=== PATIENT | female | born 1985 | race African-American/Black ===

== ENCOUNTER 2020-11-13 14:56 | Emergency (ER) | payer MEDICARE, MEDICAID, SELFPAY ==
[2020-11-13 15:02] VITALS: BP 134/91; PULSE 136; RESP 18; TEMP 37.1; O2SAT 100; BMI 23.8
--- NOTE | 2020-11-13 16:08 | ED_ITS ---
HPI - Alcohol General Chief Complaint: Nausea/Vomiting/Diarrhea Stated Complaint: FEVER VOMITING Time Seen by Provider: 11/13/20 15:59 Source: patient Mode of arrival: ambulatory Limitations: no limitations History of Present Illness HPI narrative: Patient comes to emergency room complaining of alcohol withdrawal symptoms. Patient states she feels very shaky, sweaty. Patient states that she recently tried to stop drinking. Patient usually drinks 6 beers per day and for nebs. Patient drank 1 beer yesterday. Patient states that she is trying to do the right thing, she recently got her 2 kids back from the [facility], patient is now enrolled in school in a business administration program. Patient wants to stop drinking. Patient has no history of DTs. Patient also complaining that this morning she noticed that she has new ecchymoses on both sides of the tongue, patient did not have any seizures, did not bite her tongue, states it is from vomiting MD complaint: alcohol withdrawal Related Data Previous Rx's Medication Instructions Recorded ondansetron HCl [Zofran] 4 mg PO Q6H PRN #10 tab 11/13/20 ondansetron HCl [Zofran] 4 mg PO Q6H PRN #14 tab 11/13/20 ondansetron HCl [Zofran] 4 mg PO Q6H PRN #14 tab 11/13/20 Allergies Allergy/AdvReac Type Severity Reaction Status Date / Time aspirin [Aspirin] Allergy Unknown STOMACH Verified 11/13/20 15:01 ULCERS Review of Systems Review of Systems: Constitutional : No Weight loss, No Fever, No Chills, No Night Sweats, No Fatigue, generalized malaise ENT/Mouth : No Hearing loss, No Ear Pain, No Nasal Congestion, No Sinus Pain, No Hoarseness, No sore throat, No Rhinorrhea, No Swallowing Difficulty Eyes: No Eye Pain, No Swelling, No Redness, No Foreign Body, No Discharge, No Vision Changes Cardiovascular : No Chest Pain, No SOB, No Dyspnea on Exertion, No Orthopnea, No Edema, No Palpitations Respiratory : No Cough, No Sputum, No Wheezing, No Smoke Exposure, No Dyspnea Gastrointestinal : Complaining of nausea and vomiting, No Diarrhea, No Constipation, No abdominal Pain, No Hematochezia, No Melena Genitourinary : no irregular bleeding, No Dysuria, No Urinary Frequency, No Hematuria, No Urinary Incontinence, No Urgency, No Flank Pain, No Urinary Flow Changes, No Hesitancy Musculoskeletal : No joint pain, No Myalgias, No Joint Swelling Skin : No Skin Lesions, No rash Neuro : No Weakness, No Numbness, No Paresthesias, No Loss of Consciousness, No Dizziness, No Headache Psych : No Anxiety/Panic, No Depression, No SI/HI/AH/VH, No Social Issues, Heme/Lymph: No Bruising, No Bleeding,No Lymphadenopathy Endocrine : No Polyuria, No Polydipsia, No Temperature Intolerance [facility] Past Medical History Medical History ETOH abuse Scoliosis Social History Social History Smoking Status: Unknown if ever smoked Use of substances other than those prescribed or required for medical reasons: No Advance Directives: No Advance Directives Information Provided: Yes Physical Exam Vital Signs: Vital Signs: Last Vital Signs Temp 98.7 F 11/13/20 15:02 Pulse 110 H 11/13/20 19:19 Resp 15 11/13/20 19:19 BP 116/62 11/13/20 19:19 Pulse Ox 100 11/13/20 19:19 Body Mass Index 23.8 Appearance: Alert. Oriented X3. No acute distress. Patient is tremulous Eyes: Pupils equal, round and reactive to light. ENT: Pharynx normal. Tongue has ecchymosis on bilateral sides of the tongue, no bite rae Neck: Normal inspection. Neck supple. No lymph nodes noted. No crepitus CVS: Normal heart rate and rhythm. Pulses normal. Normal S1 and S2 Respiratory: No respiratory distress. Breath sounds normal. No Wheezing. No rales Abdomen: Soft and nontender. No rigidity. No distention. good BS x4 Skin: Skin warm and dry. Clammy Extremities: No lower extremity edema. No lower extremity edema. No Lacerations. No Rash Neuro: Oriented X 3. No motor deficit. No sensory deficit. Moving all extermities. No slurred speech. Course Course Course Narrative: Patient states that she feels much better after IV fluids and a dose of Ativan. Patient does not seem to be withdrawing. assistant softball coach spoke to the patient and gave her information. Patient states she feels well. Patient is alert and oriented x3, no acute distress, ambulatory with steady gait. Patient's heart rate is 105, I discussed with the patient that we can give her more fluids, and if she remains tachycardic or have any worsening symptoms, we would consider admission for alcohol withdrawal. Patient declined MDM - Alcohol Lab Data Result diagrams: 11/13/20 16:32 11/13/20 17:45 Labs: Lab Results 11/13/20 11/13/20 11/13/20 Range/Units 16:32 16:32 17:45 WBC 11.7 H (4.8-10.8) X10*3/uL RBC 5.60 H (4.20-5.50) X10*6/uL Hgb 18.1 H (12.0-16.0) g/dl Hct 52.8 H (37-47) % MCV 94.3 (80-98) fL MCH 32.3 (27.0-33.0) pg MCHC 34.3 (31.0-35.0) g/dl RDW 11.5 (11.0-16.0) % Plt Count 235 (160-400) X10*3/uL MPV 10.4 (9.4-12.3) fL Immature Gran % (Auto) 0.2 (0.0-0.4) % Neut % (Auto) 81.2 H (45-73) % Lymph % (Auto) 9.8 L (20-40) % [place] % (Auto) 8.5 (2-11) % Eos % (Auto) 0.0 (0-4) % Baso % (Auto) 0.3 (0-2) % Lymph # (Auto) 1.1 L (1.2-4.9) X10*3/uL [place] # (Auto) 1.0 (0.1-1.2) X10*3/uL Eos # (Auto) 0.0 (0.0-0.4) X10*3/uL Baso # (Auto) 0.0 (0.0-0.2) X10*3/uL Abs Immat Gran (auto) 0.02 (0.00-0.03) X10*3/uL Absolute Neuts (auto) 9.5 H (2.0-8.3) X10*3/uL Absolute Nucleated RBC 0.000 (0.0-0.012) X10*3/uL Nucleated RBC % (auto) 0.0 (0.0-0.2) /100WBC PT 11.7 (10.8-13.0) SEC INR 1.0 (0.9-1.1) APTT 35.0 (24.1-38.0) SEC Sodium 135 (135-145) mmol/L Potassium 4.0 (3.3-5.1) mmol/L Chloride 93 L (96-108) mmol/L Carbon Dioxide 28 (22-29) mmol/L Anion Gap 18 (12-20) BUN 9 (9-16) mg/dL Creatinine 0.77 (0.5-1.4) mg/dL Estim Creat Clear Calc 82.1 Estimated GFR > 60 Random Glucose 144 H (60-115) mg/dL Calcium 9.4 (8.4-10.2) mg/dL Total Bilirubin 2.9 H (0.0-1.0) mg/dL Direct Bilirubin 1.0 H (0.0-0.5) mg/dL AST 76 H (5-31) U/L ALT 64 H (0-31) U/L Alkaline Phosphatase 62 (39-117) U/L Total Protein 8.1 H (6.5-8.0) g/dL Albumin 4.7 (3.5-5.0) g/dL Lipase 8 (8-78) U/L Ethyl Alcohol mg/dL 11/13/20 Range/Units 17:45 WBC (4.8-10.8) X10*3/uL RBC (4.20-5.50) X10*6/uL Hgb (12.0-16.0) g/dl Hct (37-47) % MCV (80-98) fL MCH (27.0-33.0) pg MCHC (31.0-35.0) g/dl RDW (11.0-16.0) % Plt Count (160-400) X10*3/uL MPV (9.4-12.3) fL Immature Gran % (Auto) (0.0-0.4) % Neut % (Auto) (45-73) % Lymph % (Auto) (20-40) % [place] % (Auto) (2-11) % Eos % (Auto) (0-4) % Baso % (Auto) (0-2) % Lymph # (Auto) (1.2-4.9) X10*3/uL [place] # (Auto) (0.1-1.2) X10*3/uL Eos # (Auto) (0.0-0.4) X10*3/uL Baso # (Auto) (0.0-0.2) X10*3/uL Abs Immat Gran (auto) (0.00-0.03) X10*3/uL Absolute Neuts (auto) (2.0-8.3) X10*3/uL Absolute Nucleated RBC (0.0-0.012) X10*3/uL Nucleated RBC % (auto) (0.0-0.2) /100WBC PT (10.8-13.0) SEC INR (0.9-1.1) APTT (24.1-38.0) SEC Sodium (135-145) mmol/L Potassium (3.3-5.1) mmol/L Chloride (96-108) mmol/L Carbon Dioxide (22-29) mmol/L Anion Gap (12-20) BUN (9-16) mg/dL Creatinine (0.5-1.4) mg/dL Estim Creat Clear Calc Estimated GFR Random Glucose (60-115) mg/dL Calcium (8.4-10.2) mg/dL Total Bilirubin (0.0-1.0) mg/dL Direct Bilirubin (0.0-0.5) mg/dL AST (5-31) U/L ALT (0-31) U/L Alkaline Phosphatase (39-117) U/L Total Protein (6.5-8.0) g/dL Albumin (3.5-5.0) g/dL Lipase (8-78) U/L Ethyl Alcohol < 10 mg/dL Discharge Plan Discharge Clinical Impression: Vomiting Qualifiers: Vomiting type: unspecified Vomiting Intractability: non-intractable Nausea presence: unspecified Qualified Code(s): R11.10 - Vomiting, unspecified Patient Disposition: Home, Self-Care Instructions: Acute Nausea and Vomiting (ED) Additional Instructions: Please follow-up with your primary care physician tomorrow. If you have any worsening or new symptoms, please return to the emergency room or call 911 Prescriptions: New ondansetron HCl [Zofran] 4 mg tablet 4 mg PO Q6H PRN (Reason: nausea and vomiting) Qty: 10 RF: 0 ondansetron HCl [Zofran] 4 mg tablet 4 mg PO Q6H PRN (Reason: nausea and vomiting) Qty: 14 RF: 0 ondansetron HCl [Zofran] 4 mg tablet 4 mg PO Q6H PRN (Reason: nausea and vomiting) Qty: 14 RF: 0 Interventions: ED Discharge Assessment Last Done: 11/13/20 19:37 Discharge Date/Time: 11/13/20 19:37
[2020-11-13 16:37] LABS: MANUAL DIFF FLAG NO
[2020-11-13] MEDS: 0.9 % Sodium Chloride 1,000 ML 999 ML IVCONT (16:38)
[2020-11-13] MEDS: LORazepam 2 MG/ML VIAL IVPUSH (16:38)
[2020-11-13 16:40] LABS: Basophils Percent Auto 0.3 % (0-2); Hematocrit 52.8 % (37-47); Hemoglobin 18.1 g/dl (12.0-16.0); Imm Gran Abs Auto 0.02 X10*3/uL (0.00-0.03); Imm Gran Pct Auto 0.2 % (0.0-0.4); Lymphocytes Absolute Auto 1.1 X10*3/uL (1.2-4.9); Lymphocytes Percent Auto 9.8 % (20-40); Mean Corpuscular HGB Conc 34.3 g/dl (31.0-35.0); Mean Corpuscular Hemoglobin 32.3 pg (27.0-33.0); Mean Corpuscular Volume 94.3 fL (80-98); Mean Platelet Volume 10.4 fL (9.4-12.3); Monocytes Percent Auto 8.5 % (2-11); Neutrophils Absolute Auto 9.5 X10*3/uL (2.0-8.3); Neutrophils Percent Auto 81.2 % (45-73); Platelet Count 235 X10*3/uL (160-400); Red Cell Distribution Width 11.5 % (11.0-16.0); White Blood Count 11.7 X10*3/uL (4.8-10.8)
[2020-11-13 16:45] VITALS: PULSE 110; RESP 20; O2SAT 98
[2020-11-13 16:59] LABS: Prothrombin Time 11.7 SEC (10.8-13.0)
--- NOTE | 2020-11-13 17:51 | MHC.RECOVSUP ---
? Reason for consult Recovery support o Current location: [facility] o Identified substance use concern: Alcohol - Support ? Intervention: o Community resources provided o Harm reduction discussion ? Plan: o Referral to [facility] o Patient to follow up with [facility] after discharge ? Additional information: Patient is interested in Starting MAT.. information for the [facility] was provided and suggested that she follow up tomorrow.. Also information for [facility] was also provided so patient can continue to get the support...
[2020-11-13 18:02] VITALS: PULSE 115; RESP 18; O2SAT 98
[2020-11-13 18:21] LABS: Alanine Aminotransferase 64 U/L (0-31); Albumin Level 4.7 g/dL (3.5-5.0); Alkaline Phosphatase 62 U/L (39-117); Anion Gap 18 (12-20); Aspartate Amino Transferase 76 U/L (5-31); Bilirubin Total 2.9 mg/dL (0.0-1.0); Blood Urea Nitrogen 9 mg/dL (9-16); Calcium 9.4 mg/dL (8.4-10.2); Carbon Dioxide 28 mmol/L (22-29); Chloride 93 mmol/L (96-108); Creatinine Clr Calc Pharmacy 82.1; Estimated Glomerular Filt Rate > 60; Glucose Random 144 mg/dL (60-115); Lipase 8 U/L (8-78); Sodium 135 mmol/L (135-145); Total Protein 8.1 g/dL (6.5-8.0)
[2020-11-13 18:23] LABS: Ethanol < 10 mg/dL
[2020-11-13 19:19] VITALS: BP 116/62; PULSE 110; RESP 15; O2SAT 100
== END 2020-11-13 19:37 | disposition home or self-care (01) ==
PROVIDERS: Emergency Provider Emergency Medicine
DX: R50.9 Fever, unspecified (principal); R11.10 Vomiting, unspecified; Z79.899 Other long term (current) drug therapy
CPT/HCPCS: 36415; 80048; 80076; 80320; 83690; 85025; 85610; 85730; 96365; 96375; 99284; J2060

== ENCOUNTER 2020-11-15 01:37 | Inpatient (IN) | payer MEDICARE, MEDICAID, SELFPAY ==
[2020-11-15] VITALS (9 sets, daily range): BP systolic 111–118; BP diastolic 77–79; PULSE 67–108; RESP 18–20; TEMP 36.6; O2SAT 97–98; BMI 24.1
--- NOTE | 2020-11-15 02:48 | PC.NURSE ---
Patient is currently in her room, sitting on her bed, calm and quiet, able to provide us urine sample, denied SI/HI, compliant with covid swabbed pending result, N faxed/called/spoke with [facility]/confirmed receipt of referral, no ETA, will continue to monitor.
[2020-11-15 02:56] LABS: COVID-19 Test Negative (Negative); IDNOW Serial# 9DD0AD1C
[2020-11-15 02:56] LABS: Glucose Urine UA NEG (NEG); Leukocyte Esterase Urine NEG (NEG); Nitrite Urine POS (NEG); Specific Gravity - Urine >= 1.030 (1.005-1.025); UACC Culture Trigger YES; Urine Blood 1+ (NEG); Urine Ketones 15 MG/DL (NEG); Urine Protein 2+ MG/DL (NEG-TRACE)
[2020-11-15 02:58] LABS: Appearance Urine HAZY; Color Urine AMBER; UPreg QC Valid YES
[2020-11-15 02:59] LABS: Urine Pregnancy NEGATIVE (NEGATIVE)
[2020-11-15 03:04] LABS: Bacteria Urine 2+ /LPF; Hyaline Casts Urine 0-2 /LPF; Mucus Urine 3+ /LPF; RBC Urine 0-2 /HPF (0); Squamous Epithelial Cell Urine 3+ /LPF; UACC CULT YES
[2020-11-15 03:34] LABS: Amphetamine Screen Urine Not Detected (Not Detect); Barbiturates, Urine Not Detected (Not Detect); Benzodiazepines Screen Urine Not Detected (Not Detect); Cannabinoid Screen Urine POSITIVE (Not Detect); Cocaine Screen Urine POSITIVE (Not Detect); Opiate Screen Urine Not Detected (Not Detect); Phencyclidine Screen Urine Not Detected (Not Detect)
--- NOTE | 2020-11-15 04:59 | ED_ITS ---
HPI - Psych General Chief Complaint: Psychiatric Symptoms Stated Complaint: Crisis Time Seen by Provider: 11/15/20 04:21 History of Present Illness HPI Narrative: Patient is a 34-year-old female presents today with having hallucinations. Positive history using cocaine. Positive previous psychiatric. Positive previous history of alcohol abuse. Patient was seen here recently for possible alcohol withdrawal. Patient denies drinking alcohol. Denies any recreational drug use. No fever no chills. Patient claims that she is seeing things. She claims she is seeing a dog in seeing somebody breathing. Sent in by family for further evaluation. Related Data Previous Rx's Medication Instructions Recorded ondansetron HCl [Zofran] 4 mg PO Q6H PRN #10 tab 11/13/20 ondansetron HCl [Zofran] 4 mg PO Q6H PRN #14 tab 11/13/20 ondansetron HCl [Zofran] 4 mg PO Q6H PRN #14 tab 11/13/20 Allergies Allergy/AdvReac Type Severity Reaction Status Date / Time aspirin [Aspirin] Allergy Unknown STOMACH Verified 11/13/20 15:01 ULCERS Review of Systems Review of Systems: Unable to answer review systems secondary to patient's condition [facility] Past Medical History Medical History ETOH abuse Scoliosis Social History Social History Smoking Status: Unknown if ever smoked Advance Directives: No Physical Exam Vital Signs: Vital Signs: Last Vital Signs Temp 97.8 F 11/15/20 02:20 Pulse 108 H 11/15/20 02:20 Resp 18 11/15/20 02:20 BP 111/79 11/15/20 02:20 Pulse Ox 98 11/15/20 02:20 Body Mass Index 24.1 Appearance: Alert. . No acute distress. Eyes: Pupils equal, round and reactive to light. ENT: Pharynx normal. Neck: Normal inspection. Neck supple. No lymph nodes noted. No crepitus CVS: Normal heart rate and rhythm. Pulses normal. Normal S1 and S2 Respiratory: No respiratory distress. Breath sounds normal. No Wheezing. No rales Abdomen: Soft and nontender. No rigidity. No distention. good BS x4 Skin: Skin warm and dry. Normal skin color. Normal skin turgor. Extremities: No lower extremity edema. Neurovascular intact to all extremities. No Lacerations. No Rash Neuro: . No motor deficit. No sensory deficit. Moving all extermities. No slurred speech MDM - Psych MDM Narrative Medical decision making narrative: Will get baseline labs. Will give Zyprexa for hallucination. Alcohol level with redrawn. Will monitor carefully. Psychiatric consult placed. Patient electrolytes unremarkable. Currently medically cleared awaiting crisis evaluation. Lab Data Result diagrams: 11/15/20 05:14 11/15/20 05:14 Labs: Lab Results 11/15/20 11/15/20 11/15/20 Range/Units 02:32 02:48 02:48 WBC (4.8-10.8) X10*3/uL RBC (4.20-5.50) X10*6/uL Hgb (12.0-16.0) g/dl Hct (37-47) % MCV (80-98) fL MCH (27.0-33.0) pg MCHC (31.0-35.0) g/dl RDW (11.0-16.0) % Plt Count (160-400) X10*3/uL MPV (9.4-12.3) fL Immature Gran % (Auto) Neut % (Auto) Lymph % (Auto) [place] % (Auto) Eos % (Auto) Baso % (Auto) Lymph # (Auto) [place] # (Auto) Eos # (Auto) Baso # (Auto) Abs Immat Gran (auto) Absolute Neuts (auto) Absolute Nucleated RBC (0.0-0.012) X10*3/uL Nucleated RBC % (auto) (0.0-0.2) /100WBC Neutrophils % (Manual) (45-73) % Band Neutrophils % (3-5) % Lymphocytes % (Manual) (20-40) % Monocytes % (Manual) (2-11) % Eosinophils % (Manual) (0-4) % Abs Neuts (Manual) (2.2-7.9) X10*3/uL Lymphocytes # (Manual) (0.6-4.8) X10*3/uL Monocytes # (Manual) (0.0-1.2) X10*3/uL Eosinophils # (Manual) (0.0-0.8) X10*3/UL Platelet Estimate (NORMAL) Plt Morphology Comment RBC Morphology Sodium (135-145) mmol/L Potassium (3.3-5.1) mmol/L Chloride (96-108) mmol/L Carbon Dioxide (22-29) mmol/L Anion Gap (12-20) BUN (9-16) mg/dL Creatinine (0.5-1.4) mg/dL Estim Creat Clear Calc Estimated GFR Random Glucose (60-115) mg/dL Calcium (8.4-10.2) mg/dL Urine Color SAVANA Urine Appearance HAZY Urine pH 6.0 (5.0-8.0) Ur Specific [place] >= 1.030 H (1.005-1.025) Urine Protein 2+ H (NEG-TRACE) MG/DL Urine Glucose (UA) NEG (NEG) MG/DL Urine Ketones 15 (NEG) MG/DL Urine Blood 1+ H (NEG) Urine Nitrite POS H (NEG) Ur Leukocyte Esterase NEG (NEG) Urine RBC 0-2 (0) /HPF Urine WBC 5-9 H (0-4) /HPF Ur Squamous Epith Cells 3+ /LPF Urine Bacteria 2+ /LPF Hyaline Casts 0-2 /LPF Urine Mucus 3+ /LPF Urine Test NEGATIVE (NEGATIVE) Urine Opiates Screen (Not Detect) Ur Barbiturates Screen (Not Detect) Ur Phencyclidine Scrn (Not Detect) Ur Amphetamines Screen (Not Detect) U Benzodiazepines Scrn (Not Detect) Urine Cocaine Screen (Not Detect) U Marijuana (THC) Screen (Not Detect) Ethyl Alcohol mg/dL COVID-19 (CELESTE) Negative (Negative) COVID-19 Clin Com See Note 11/15/20 11/15/20 11/15/20 Range/Units 02:48 05:14 05:14 WBC 10.0 (4.8-10.8) X10*3/uL RBC 4.25 D (4.20-5.50) X10*6/uL Hgb 13.9 D (12.0-16.0) g/dl Hct 39.9 D (37-47) % MCV 93.9 (80-98) fL MCH 32.7 (27.0-33.0) pg MCHC 34.8 (31.0-35.0) g/dl RDW 11.3 (11.0-16.0) % Plt Count 177 (160-400) X10*3/uL MPV 11.2 (9.4-12.3) fL Immature Gran % (Auto) Cancelled Neut % (Auto) Cancelled Lymph % (Auto) Cancelled [place] % (Auto) Cancelled Eos % (Auto) Cancelled Baso % (Auto) Cancelled Lymph # (Auto) Cancelled [place] # (Auto) Cancelled Eos # (Auto) Cancelled Baso # (Auto) Cancelled Abs Immat Gran (auto) Cancelled Absolute Neuts (auto) Cancelled Absolute Nucleated RBC 0.000 (0.0-0.012) X10*3/uL Nucleated RBC % (auto) 0.0 (0.0-0.2) /100WBC Neutrophils % (Manual) 62 (45-73) % Band Neutrophils % 1 L (3-5) % Lymphocytes % (Manual) 26 (20-40) % Monocytes % (Manual) 9 (2-11) % Eosinophils % (Manual) 2 (0-4) % Abs Neuts (Manual) 6.3 (2.2-7.9) X10*3/uL Lymphocytes # (Manual) 2.6 (0.6-4.8) X10*3/uL Monocytes # (Manual) 0.9 (0.0-1.2) X10*3/uL Eosinophils # (Manual) 0.2 (0.0-0.8) X10*3/UL Platelet Estimate NORMAL (NORMAL) Plt Morphology Comment NORMAL RBC Morphology NORMAL Sodium 134 L (135-145) mmol/L Potassium 3.4 (3.3-5.1) mmol/L Chloride 97 (96-108) mmol/L Carbon Dioxide 25 (22-29) mmol/L Anion Gap 15 (12-20) BUN 15 D (9-16) mg/dL Creatinine 1.00 (0.5-1.4) mg/dL Estim Creat Clear Calc 63.2 Estimated GFR > 60 Random Glucose 121 H (60-115) mg/dL Calcium 9.0 (8.4-10.2) mg/dL Urine Color Urine Appearance Urine pH (5.0-8.0) Ur Specific [place] (1.005-1.025) Urine Protein (NEG-TRACE) MG/DL Urine Glucose (UA) (NEG) MG/DL Urine Ketones (NEG) MG/DL Urine Blood (NEG) Urine Nitrite (NEG) Ur Leukocyte Esterase (NEG) Urine RBC (0) /HPF Urine WBC (0-4) /HPF Ur Squamous Epith Cells /LPF Urine Bacteria /LPF Hyaline Casts /LPF Urine Mucus /LPF Urine Test (NEGATIVE) Urine Opiates Screen Not Detected (Not Detect) Ur Barbiturates Screen Not Detected (Not Detect) Ur Phencyclidine Scrn Not Detected (Not Detect) Ur Amphetamines Screen Not Detected (Not Detect) U Benzodiazepines Scrn Not Detected (Not Detect) Urine Cocaine Screen POSITIVE H (Not Detect) U Marijuana (THC) Screen POSITIVE H (Not Detect) Ethyl Alcohol mg/dL COVID-19 (CELESTE) (Negative) COVID-19 Clin Com 11/15/20 Range/Units 05:14 WBC (4.8-10.8) X10*3/uL RBC (4.20-5.50) X10*6/uL Hgb (12.0-16.0) g/dl Hct (37-47) % MCV (80-98) fL MCH (27.0-33.0) pg MCHC (31.0-35.0) g/dl RDW (11.0-16.0) % Plt Count (160-400) X10*3/uL MPV (9.4-12.3) fL Immature Gran % (Auto) Neut % (Auto) Lymph % (Auto) [place] % (Auto) Eos % (Auto) Baso % (Auto) Lymph # (Auto) [place] # (Auto) Eos # (Auto) Baso # (Auto) Abs Immat Gran (auto) Absolute Neuts (auto) Absolute Nucleated RBC (0.0-0.012) X10*3/uL Nucleated RBC % (auto) (0.0-0.2) /100WBC Neutrophils % (Manual) (45-73) % Band Neutrophils % (3-5) % Lymphocytes % (Manual) (20-40) % Monocytes % (Manual) (2-11) % Eosinophils % (Manual) (0-4) % Abs Neuts (Manual) (2.2-7.9) X10*3/uL Lymphocytes # (Manual) (0.6-4.8) X10*3/uL Monocytes # (Manual) (0.0-1.2) X10*3/uL Eosinophils # (Manual) (0.0-0.8) X10*3/UL Platelet Estimate (NORMAL) Plt Morphology Comment RBC Morphology Sodium (135-145) mmol/L Potassium (3.3-5.1) mmol/L Chloride (96-108) mmol/L Carbon Dioxide (22-29) mmol/L Anion Gap (12-20) BUN (9-16) mg/dL Creatinine (0.5-1.4) mg/dL Estim Creat Clear Calc Estimated GFR Random Glucose (60-115) mg/dL Calcium (8.4-10.2) mg/dL Urine Color Urine Appearance Urine pH (5.0-8.0) Ur Specific [place] (1.005-1.025) Urine Protein (NEG-TRACE) MG/DL Urine Glucose (UA) (NEG) MG/DL Urine Ketones (NEG) MG/DL Urine Blood (NEG) Urine Nitrite (NEG) Ur Leukocyte Esterase (NEG) Urine RBC (0) /HPF Urine WBC (0-4) /HPF Ur Squamous Epith Cells /LPF Urine Bacteria /LPF Hyaline Casts /LPF Urine Mucus /LPF Urine Test (NEGATIVE) Urine Opiates Screen (Not Detect) Ur Barbiturates Screen (Not Detect) Ur Phencyclidine Scrn (Not Detect) Ur Amphetamines Screen (Not Detect) U Benzodiazepines Scrn (Not Detect) Urine Cocaine Screen (Not Detect) U Marijuana (THC) Screen (Not Detect) Ethyl Alcohol < 10 mg/dL COVID-19 (CELESTE) (Negative) COVID-19 Clin Com Discharge Plan Discharge Prescriptions: No Action ondansetron HCl [Zofran] 4 mg tablet 4 mg PO Q6H PRN (Reason: nausea and vomiting) Qty: 10 RF: 0 ondansetron HCl [Zofran] 4 mg tablet 4 mg PO Q6H PRN (Reason: nausea and vomiting) Qty: 14 RF: 0 ondansetron HCl [Zofran] 4 mg tablet 4 mg PO Q6H PRN (Reason: nausea and vomiting) Qty: 14 RF: 0
[2020-11-15] MEDS: OLANZapine ODT 10 MG TAB.RAPDIS TRANSLINGU (05:03)
--- NOTE | 2020-11-15 05:08 | PC.NURSE ---
Patient just got seen by provider, patient reported seeing people in her room, observed self dialoguing, provider ordered/Olanzapine 10 mg sublingual, patient compliant, labs ordered pending draw, will continue to monitor.
[2020-11-15 05:27] LABS: Hematocrit 39.9 % (37-47); Hemoglobin 13.9 g/dl (12.0-16.0); Mean Corpuscular HGB Conc 34.8 g/dl (31.0-35.0); Mean Corpuscular Hemoglobin 32.7 pg (27.0-33.0); Mean Corpuscular Volume 93.9 fL (80-98); Mean Platelet Volume 11.2 fL (9.4-12.3); Platelet Count 177 X10*3/uL (160-400); Red Blood Count 4.25 X10*6/uL (4.20-5.50); Red Cell Distribution Width 11.3 % (11.0-16.0); WBC ABN SCTR FOR CBC 1
[2020-11-15 05:55] LABS: Band Neutrophils Percent 1 % (3-5); Eosinophils Absolute Manual 0.2 X10*3/UL (0.0-0.8); Eosinophils Percent Manual 2 % (0-4); Lymphocytes Absolute Manual 2.6 X10*3/uL (0.6-4.8); Lymphocytes Percent Manual 26 % (20-40); Monocytes Absolute Manual 0.9 X10*3/uL (0.0-1.2); Monocytes Percent Manual 9 % (2-11); Neutrophils Absolute Manual 6.3 X10*3/uL (2.2-7.9); Neutrophils Percent Manual 62 % (45-73); Platelet Estimate NORMAL (NORMAL); Platelet Morphology Comment NORMAL; RBC Morphology NORMAL
[2020-11-15 05:57] LABS: Ethanol < 10 mg/dL
[2020-11-15 05:59] LABS: Anion Gap 15 (12-20); Blood Urea Nitrogen 15 mg/dL (9-16); Carbon Dioxide 25 mmol/L (22-29); Chloride 97 mmol/L (96-108); Creatinine Clr Calc Pharmacy 63.2; Estimated Glomerular Filt Rate > 60; Glucose Random 121 mg/dL (60-115); Potassium 3.4 mmol/L (3.3-5.1); Sodium 134 mmol/L (135-145)
--- NOTE | 2020-11-15 07:32 | PC.NURSE ---
Report received from GRACIE Benitez. Pt resting, resp unlabored.
--- NOTE | 2020-11-15 10:52 | PC.NURSE ---
Pt awakened for vital signs. Pt alert, initially confused re: month but easily reoriented. Pt denies any AH/VH at this time. Evaluated w/ K samra. Pt denies any symptoms of withdrawal at this time.
--- NOTE | 2020-11-15 13:07 | PC.NURSE ---
Pt denies any symptoms of withdrawal. Pt resting, easily awakened. Pt denies any ah/vh. Pt gives permission to speak to mother:
--- NOTE | 2020-11-15 14:35 | PM.EVENT ---
Event Note Date of Service: 11/15/20 Event Note: Consult order received. Arrived to see pt. Team requested I hold until seen by screening team for disposition. They will call as needed if med evaluation is needed.
--- NOTE | 2020-11-15 16:20 | PC.NURSE ---
Carlos called to ask re: clinician arrival. State clinician will be here after 1700 today.
--- NOTE | 2020-11-15 18:25 | PC.NURSE ---
Pt resting, resp unlabored.
--- NOTE | 2020-11-15 19:23 | PC.NURSE ---
Pt resting in room, consistently declines any symptoms of withdrawal. Pt continues to wait for BHN evaluation. CARE team aware.
[2020-11-15] MEDS: Nitrofurantoin Monohyd/M-Cryst 100 MG CAPSULE PO (19:50)
[2020-11-15] MEDS: chlordiazePOXIDE HCl 25 MG CAPSULE PO (19:50)
--- NOTE | 2020-11-15 23:00 | PC.NURSE ---
Patient in bed resting currently, Care Team assessed the patient, disposition is section 12 inpatient bed search, will continue to monitor the patient.
--- NOTE | 2020-11-16 00:12 | ECG_ITS ---
Test Reason : PLACEMENT Blood Pressure : / mmHG Vent. Rate : 065 BPM Atrial Rate : 065 BPM P-R Int : 130 ms QRS Dur : 088 ms QT Int : 530 ms P-R-T Axes : 053 049 120 degrees QTc Int : 551 ms Normal sinus rhythm Cannot rule out Anterior infarct , age undetermined Prolonged QT Abnormal ECG No previous ECGs available Referred By: Jennifer Camacho Electronically Signed By:CHANDAN CRUZ MD
[2020-11-16] MEDS: Amoxicillin/Potassium Clav 875 MG TABLET PO ×3 (00:26→22:48)
--- NOTE | 2020-11-16 00:30 | PC.NURSE ---
Patient reported that her tongue is sore to Care Team clinician, provider assessed the patient/ordered Augmentin/administered as ordered, patient in bed resting, RN to RN reported completed, will continue to monitor.
[2020-11-16 00:34] VITALS: BP 107/77; PULSE 68; RESP 18; TEMP 36; O2SAT 100
[2020-11-16] MEDS: hydrOXYzine HCL 25 MG TABLET PO (04:55)
[2020-11-16] MEDS: Acetaminophen 325 MG TABLET 650 MG PO ×2 (05:00→17:13)
[2020-11-16 05:07] VITALS: BP 144/106; PULSE 80; RESP 18; TEMP 36.6; O2SAT 99
[2020-11-16] MEDS: chlordiazePOXIDE HCl 25 MG CAPSULE PO (05:48)
[2020-11-16 06:30] VITALS: BP 131/89; PULSE 89; RESP 16; TEMP 36.6; O2SAT 97
[2020-11-16] MEDS: Gabapentin 300 MG CAPSULE PO ×3 (06:34→22:48)
[2020-11-16] MEDS: Folic Acid 1 MG TABLET PO (06:34)
[2020-11-16] MEDS: Thiamine HCL 100 MG TABLET PO (06:34)
--- NOTE | 2020-11-16 07:30 | PC.ADMIT ---
Pt is a 34 yo female admitted to at 0445 after signing a CV with a dx of AUD and bipolar disorder. Upon arrival pt was disoriented to place and date. Assessed CIWA 16. Provider notified and Librium 25 mg admin PO. BP elevated otherwise VSS. Presented to [facility] via EMS after pt called police, believed mother to have been murdered and son kidnapped. Recent manic symptoms including sleep deprivation followed by ETOH detox. Reports using ETOH daily for two years, 4x 25 oz beer and 6 nips whiskey daily. Last use 11/11/20. Reports presenting to [facility] earlier in the week then leaving to go home. P t reports seizure from withdrawal at home and biting tongue severely. Assessed in ED and antibiotic prescribed. Pt also dx with UTI in ED with antx prescribed. Pt currently lives with two children and mother and supported by SSDI while recently enrolled in college. Tox + for cocaine and THC which she believes she smoked in marijuana unknowingly. Pt reports AH/VH while in ED but none current. Denies SI/HI and will seek staff if expereincing thoughts. On-call provider notified and orders submitted. Placed on Q15 safety checks.
--- NOTE | 2020-11-16 08:35 | HO.PSYADMNOT ---
HPI Chief Complaint: SI Sources of Information: patient interviewed, chart reviewed and crisis/core team assessment reviewed HPI Subjective Notes: Conditional Voluntary Narrative: Ms. Rodrigez is a 34 year-old woman with hx of MDD, cocaine and alcohol abuse who initially presented to [facility] on [place]/13[place]20 reports alcohol withdrawal. She went back home apparently had seizure, was seeing things that were not there, appeared confused and disorganized which has never happened to her before. SHe reported abruptly stopping drinking about 3 days prior. In the ED, pt reported AH mostly at night. She was able to recognized that these voices others couldn't hear and were not real. She also reported feeling like something was crawling on her skin. Her BP and HR were elevated. Her Utoc was positive for cocaine and cannabis. BAL was less than 10. However, pt showing clear signs of severe alcohol withdrawal. On the unit, pt presented as very tearful. She was placed on 15 minutes checks for safety and started on alcohol withdrawal protocol on librium. She endorse depressed mood, anhedonia, feelings of guilt and shame related to her ongoing substance use. She reported drinking almost daily since she was 21 years old. She reported only period of sobriety from alcohol was when she was with her now 2 year old son. She also reported that she ended relationship with her partner and father of her son as he was also using substances. She reported feeling very saddened about break up but also realized that she would not get better in terms of her substance use and mental health if she did not end that relationship. She reported fair sleep- improving as withdrawal symptoms were improving. She endorses suicidal ideation but denies any plan or intent to hurt herself. She identifies son as protective factor and states she is motivated to continue substance use treatment. We discussed risks, benefits and alternative treatment options. She had been on sertraline in the past with good effect and agreed to continue. She was started on gabapetin for alcohol withdrawal and to prevent seizures. She was continued on librium protocol. She was started on thiamine and folic acid. We discussed medication to decrease alcohol cravings. Past Psychiatric History: Inpt- one previous inpt admission on 2014 at [facility] OP: none Suicide attempts: none Past medication trials: sertraline Medical Evaluation Reviewed: Yes [facility] Medical History ETOH abuse Scoliosis Family History: none Social History: lives with mother. She has two children ages 12 and 2. Substance History: Alcohol: daily since age 21, 4-5 nip of vodka, 4-5 beers. Cocaine: since age 21, weekly denies opiates use. Diagnostics Vital Signs (24Hr): Vital Signs - 24 hr 11/18/20 15:48 11/19/20 06:10 Temperature 97.5 F 97.2 F Pulse Rate 105 H 75 Respiratory Rate 16 Blood Pressure 135/99 H 103/57 L Pulse Oximetry 100 Body Mass Index 24.1 Labs Results: 11/15/20 05:14 11/15/20 05:14 Meds/Allergies Meds Home Medications Amoxicillin/Clavulanate Potassium (Amoxicillin/Potassium Clav 875 Mg Tablet) 875 mg PO BID [facility] Stop: 11/20/20 09:01 Last Admin: 11/19/20 08:40 Dose: 875 mg Documented by: Chlordiazepoxide HCl (Chlordiazepoxide Hcl 25 Mg Capsule) 50 mg PO Q6H PRN PRN Reason: Alcohol Withdrawal Last Admin: 11/18/20 08:03 Dose: 50 mg Documented by: Folic Acid (Folic Acid 1 Mg Tablet) 1 mg PO DAILY [facility] Last Admin: 11/19/20 08:40 Dose: 1 mg Documented by: Gabapentin (Gabapentin 300 Mg Capsule) 300 mg PO TID [facility] Last Admin: 11/19/20 08:40 Dose: 300 mg Documented by: Hydroxyzine HCl (Hydroxyzine Hcl 25 Mg Tablet) 25 mg PO Q4H PRN PRN Reason: Anxiety Last Admin: 11/18/20 23:28 Dose: 25 mg Documented by: Ibuprofen (Ibuprofen 400 Mg Tablet) 400 mg PO Q6H PRN PRN Reason: Pain, Moderate (Pain Scale 4-6 Last Admin: 11/18/20 22:12 Dose: 400 mg Documented by: Naltrexone HCl (Naltrexone Hcl 50 Mg Tablet) 50 mg PO DAILY [facility] Last Admin: 11/19/20 08:40 Dose: 50 mg Documented by: Sertraline HCl (Sertraline Hcl 50 Mg Tablet) 75 mg PO DAILY [facility] Last Admin: 11/19/20 08:39 Dose: 75 mg Documented by: Thiamine HCl (Thiamine Hcl 100 Mg Tablet) 100 mg PO DAILY [facility] Last Admin: 11/19/20 08:40 Dose: 100 mg Documented by: Allergies Allergies Allergy/AdvReac Type Severity Reaction Status Date / Time aspirin [Aspirin] Allergy Unknown STOMACH Verified 11/13/20 15:01 [facility] Mental Status Exam Mental Status Exam Narrative: Appearance: casually groomed, fair hygiene, tearful, in NAD Behavior: calm, cooperative Psychomotor: no agitation or retardation noted Speech: clear, normal rate/rhythm/volume, spontaneous TP: linear TC: no signs of psychosis, shame/guilt, wanting to make changes in her life. Mood: depressed Affect:blunted AH/VH:none Delusions:none Insight/judgment:fair x 2 Memory/cog: alert, oriented x 3. grossly intact to conversational testing Assessment & Plan Assessment & Plan (1) MDD (major depressive disorder), recurrent episode, moderate: Status: Acute Code(s): F33.1 - Major depressive disorder, recurrent, moderate Assessment and Plan: 1. Start Sertraline 50mg po daily- titrate as tolerated (2) Alcohol dependence: Status: Acute Code(s): F10.20 - Alcohol dependence, uncomplicated Assessment and Plan: 1. Librium protocol 2. will discuss further medication for alcohol cravings 3. continue gabapetin 300mg po TID 4. continue thiamine, folic acid. (3) Cocaine abuse: Status: Acute Code(s): F14.10 - Cocaine abuse, uncomplicated Reason for continued inpatient stay Substantial Risk for: harm to self
[2020-11-16] MEDS: Nitrofurantoin Monohyd/M-Cryst 100 MG CAPSULE PO (08:39)
[2020-11-16] MEDS: Flu Vacc QS2020-21(6mos up)/PF 0.5 ML SYRINGE IM (08:40)
[2020-11-16 17:05] VITALS: BP 138/89; PULSE 100; TEMP 36.8
[2020-11-16] MEDS: chlordiazePOXIDE HCl 25 MG CAPSULE 50 MG PO (17:13)
[2020-11-16 19:15] VITALS: BP 127/83; PULSE 114; TEMP 36.6
[2020-11-17 06:15] VITALS: BP 132/64; PULSE 104; RESP 16; TEMP 36.8; O2SAT 95
[2020-11-17] MEDS: Acetaminophen 325 MG TABLET 650 MG PO ×2 (06:21→20:08)
[2020-11-17] MEDS: Amoxicillin/Potassium Clav 875 MG TABLET PO ×2 (09:17→20:07)
[2020-11-17] MEDS: Folic Acid 1 MG TABLET PO (09:18)
[2020-11-17] MEDS: Gabapentin 300 MG CAPSULE PO ×3 (09:18→20:08)
[2020-11-17] MEDS: Thiamine HCL 100 MG TABLET PO (09:18)
[2020-11-17] MEDS: Sertraline HCL 50 MG TABLET PO (09:18)
[2020-11-17] MEDS: Ibuprofen 400 MG TABLET PO (09:18)
[2020-11-17] MEDS: chlordiazePOXIDE HCl 25 MG CAPSULE 50 MG PO ×2 (09:20→22:25)
--- NOTE | 2020-11-17 12:50 | HO.PSYCHPN ---
Subjective Subjective Date of Service: 11/17/20 Reason For Visit: SI Subjective Notes: Conditional Voluntary Interim History: Pt tearful today. She reports thinking about her son, although knows that partner was not good influence for her, she misses him. She denies SI/HI. She reports having alcohol cravings today. We discussed starting naltrexon. She reports sleeping better. CIWA score today was 6. VS improved. She has been visible in the unit, attends some groups wants to go to substance use treatment program. MSE Appearance: casually groomed, fair hygiene, in NAD Behavior: calm, cooperative Psychomotor: no agitation or retardation noted Speech: clear, normal rate/rhythm/volume, spontaneous TP: linear TC: no signs of psychosis, tearful but future oriented Mood: depressed Affect:blunted, tearful AH/VH:none Delusions:none Insight/judgment:fair x 2. Memory/cog: alert, oriented x 3. grossly intact to conversational testing Medication Compliance: Yes Review of Systems Review of Systems Unable to answer review systems secondary to patient's condition Diagnostics Vital Signs (24Hr): Vital Signs - 24 hr 11/16/20 17:05 11/16/20 19:15 11/17/20 06:15 Temperature 98.3 F 97.9 F 98.3 F Pulse Rate 100 114 H 104 H Respiratory Rate 16 Blood Pressure 138/89 127/83 132/64 Pulse Oximetry 95 Body Mass Index 24.1 Labs Results: 11/15/20 05:14 11/15/20 05:14 Medications Medications Current Medications Generic Name Dose Route Start Last Admin Trade Name Freq PRN Reason Stop Dose Admin Acetaminophen 650 mg 11/15/20 23:21 11/17/20 06:21 Acetaminophen 325 Mg Tablet PO 650 mg Q6H PRN Administration Headache/Pain Mild Scale (1-3) Al Hydroxide/Mg Hydroxide 30 ml 11/15/20 23:21 Magnesium Hydrox/Alum Hydrox 30 Ml Oral.Susp PO Q6H PRN Heartburn/Nausea Amoxicillin/Clavulanate Potassium 875 mg 11/16/20 09:00 11/17/20 09:17 Amoxicillin/Potassium Clav 875 Mg Tablet PO 11/20/20 09:01 875 mg BID [facility] Administration Chlordiazepoxide HCl 50 mg 11/16/20 11:41 11/17/20 09:20 Chlordiazepoxide Hcl 25 Mg Capsule PO 50 mg Q6H PRN Administration Alcohol Withdrawal Folic Acid 1 mg 11/16/20 09:00 11/17/20 09:18 Folic Acid 1 Mg Tablet PO 1 mg DAILY [facility] Administration Gabapentin 300 mg 11/16/20 09:00 11/17/20 09:18 Gabapentin 300 Mg Capsule PO 300 mg TID [facility] Administration Hydroxyzine HCl 25 mg 11/15/20 23:21 11/16/20 04:55 Hydroxyzine Hcl 25 Mg Tablet PO 25 mg Q6H PRN Administration Anxiety Ibuprofen 400 mg 11/17/20 08:53 11/17/20 09:18 Ibuprofen 400 Mg Tablet PO 400 mg Q6H PRN Administration Pain, Moderate (Pain Scale 4-6 Magnesium Hydroxide 30 ml 11/15/20 23:21 Milk Of Magnesia 30 Ml Oral.Susp PO DAILY PRN Constipation Sertraline HCl 50 mg 11/17/20 09:00 11/17/20 09:18 Sertraline Hcl 50 Mg Tablet PO 50 mg DAILY [facility] Administration Thiamine HCl 100 mg 11/16/20 09:00 11/17/20 09:18 Thiamine Hcl 100 Mg Tablet PO 100 mg DAILY [facility] Administration Trazodone HCl 50 mg 11/15/20 23:21 Trazodone Hcl 50 Mg Tablet PO BEDTIME PRN Insomnia Allergies Allergies Allergy/AdvReac Type Severity Reaction Status Date / Time aspirin [Aspirin] Allergy Unknown STOMACH Verified 11/13/20 15:01 [facility] Assessment & Plan Assessment & Plan (1) Cocaine abuse: Status: Acute Code(s): F14.10 - Cocaine abuse, uncomplicated (2) MDD (major depressive disorder), recurrent episode, moderate: Status: Acute Code(s): F33.1 - Major depressive disorder, recurrent, moderate Assessment and Plan: Increase sertraline to 75mg po daily. (3) Alcohol dependence: Status: Acute Code(s): F10.20 - Alcohol dependence, uncomplicated Assessment and Plan: start naltrexone 50mg po daily Greater than 50% of the session was spent on counseling and/or coordination of care Reason for contiued inpatient stay Substantial Risk for: harm to self
[2020-11-17] MEDS: Naltrexone HCl 50 MG TABLET PO (13:07)
[2020-11-17 21:56] VITALS: BP 135/86; PULSE 100; RESP 16; TEMP 36.3; O2SAT 97
[2020-11-17] MEDS: hydrOXYzine HCL 25 MG TABLET PO (22:25)
[2020-11-18 06:25] VITALS: BP 108/69; PULSE 97; RESP 18; TEMP 36.8; O2SAT 97
[2020-11-18] MEDS: Ibuprofen 400 MG TABLET PO ×2 (06:41→22:12)
[2020-11-18] MEDS: Folic Acid 1 MG TABLET PO (08:03)
[2020-11-18] MEDS: Gabapentin 300 MG CAPSULE PO ×3 (08:03→22:12)
[2020-11-18] MEDS: Thiamine HCL 100 MG TABLET PO (08:03)
[2020-11-18] MEDS: chlordiazePOXIDE HCl 25 MG CAPSULE 50 MG PO (08:03)
[2020-11-18] MEDS: Amoxicillin/Potassium Clav 875 MG TABLET PO ×2 (08:03→22:13)
[2020-11-18] MEDS: Sertraline HCL 50 MG TABLET 75 MG PO (08:03)
[2020-11-18] MEDS: hydrOXYzine HCL 25 MG TABLET PO ×4 (08:03→23:28)
[2020-11-18] MEDS: Naltrexone HCl 50 MG TABLET PO (08:03)
--- NOTE | 2020-11-18 10:49 | HO.PSYCHPN ---
Subjective Subjective Date of Service: 11/18/20 Reason For Visit: SI Interim History: Pt less tearful today. She reports thinking about her son, although knows that partner was not good influence for her, she misses him. She denies SI/HI. She reports having alcohol cravings today. She started naltrexon no side effects. She reports sleeping better. CIWA score today was 6. VS improved. She has been visible in the unit, attends some groups wants to go to substance use treatment program. MSE Appearance: casually groomed, fair hygiene, in NAD Behavior: calm, cooperative Psychomotor: no agitation or retardation noted Speech: clear, normal rate/rhythm/volume, spontaneous TP: linear TC: no signs of psychosis, tearful but future oriented Mood: depressed Affect:blunted, tearful AH/VH:none Delusions:none Insight/judgment:fair x 2. Memory/cog: alert, oriented x 3. grossly intact to conversational testing Review of Systems Review of Systems Unable to answer review systems secondary to patient's condition Diagnostics Vital Signs (24Hr): Vital Signs - 24 hr 11/17/20 21:56 11/18/20 06:25 Temperature 97.4 F 98.2 F Pulse Rate 100 97 Respiratory Rate 16 18 Blood Pressure 135/86 108/69 Pulse Oximetry 97 97 Body Mass Index 24.1 Labs Results: 11/15/20 05:14 11/15/20 05:14 Medications Medications Current Medications Generic Name Dose Route Start Last Admin Trade Name Freq PRN Reason Stop Dose Admin Acetaminophen 650 mg 11/15/20 23:21 11/17/20 20:08 Acetaminophen 325 Mg Tablet PO 650 mg Q6H PRN Administration Headache/Pain Mild Scale (1-3) Al Hydroxide/Mg Hydroxide 30 ml 11/15/20 23:21 Magnesium Hydrox/Alum Hydrox 30 Ml Oral.Susp PO Q6H PRN Heartburn/Nausea Amoxicillin/Clavulanate Potassium 875 mg 11/16/20 09:00 11/18/20 08:03 Amoxicillin/Potassium Clav 875 Mg Tablet PO 11/20/20 09:01 875 mg BID [facility] Administration Chlordiazepoxide HCl 50 mg 11/16/20 11:41 11/18/20 08:03 Chlordiazepoxide Hcl 25 Mg Capsule PO 50 mg Q6H PRN Administration Alcohol Withdrawal Folic Acid 1 mg 11/16/20 09:00 11/18/20 08:03 Folic Acid 1 Mg Tablet PO 1 mg DAILY [facility] Administration Gabapentin 300 mg 11/16/20 09:00 11/18/20 08:03 Gabapentin 300 Mg Capsule PO 300 mg TID [facility] Administration Hydroxyzine HCl 25 mg 11/15/20 23:21 11/18/20 08:03 Hydroxyzine Hcl 25 Mg Tablet PO 25 mg Q6H PRN Administration Anxiety Ibuprofen 400 mg 11/17/20 08:53 11/18/20 06:41 Ibuprofen 400 Mg Tablet PO 400 mg Q6H PRN Administration Pain, Moderate (Pain Scale 4-6 Magnesium Hydroxide 30 ml 11/15/20 23:21 Milk Of Magnesia 30 Ml Oral.Susp PO DAILY PRN Constipation Naltrexone HCl 50 mg 11/17/20 12:50 11/18/20 08:03 Naltrexone Hcl 50 Mg Tablet PO 50 mg DAILY [facility] Administration Sertraline HCl 75 mg 11/18/20 09:00 11/18/20 08:03 Sertraline Hcl 50 Mg Tablet PO 75 mg DAILY [facility] Administration Thiamine HCl 100 mg 11/16/20 09:00 11/18/20 08:03 Thiamine Hcl 100 Mg Tablet PO 100 mg DAILY [facility] Administration Trazodone HCl 50 mg 11/15/20 23:21 Trazodone Hcl 50 Mg Tablet PO BEDTIME PRN Insomnia Allergies Allergies Allergy/AdvReac Type Severity Reaction Status Date / Time aspirin [Aspirin] Allergy Unknown STOMACH Verified 11/13/20 15:01 [facility] Assessment & Plan Assessment & Plan (1) Cocaine abuse: Status: Acute Code(s): F14.10 - Cocaine abuse, uncomplicated (2) MDD (major depressive disorder), recurrent episode, moderate: Status: Acute Code(s): F33.1 - Major depressive disorder, recurrent, moderate Assessment and Plan: Increase sertraline to 75mg po daily. (3) Alcohol dependence: Status: Acute Code(s): F10.20 - Alcohol dependence, uncomplicated Assessment and Plan: start naltrexone 50mg po daily Greater than 50% of the session was spent on counseling and/or coordination of care Reason for contiued inpatient stay Substantial Risk for: harm to self
[2020-11-18 15:48] VITALS: BP 135/99; PULSE 105; TEMP 36.4
[2020-11-19 06:10] VITALS: BP 103/57; PULSE 75; RESP 16; TEMP 36.2; O2SAT 100
[2020-11-19] MEDS: Sertraline HCL 50 MG TABLET 75 MG PO (08:39)
[2020-11-19] MEDS: Amoxicillin/Potassium Clav 875 MG TABLET PO ×2 (08:40→22:05)
[2020-11-19] MEDS: Naltrexone HCl 50 MG TABLET PO (08:40)
[2020-11-19] MEDS: Thiamine HCL 100 MG TABLET PO (08:40)
[2020-11-19] MEDS: Folic Acid 1 MG TABLET PO (08:40)
[2020-11-19] MEDS: Gabapentin 300 MG CAPSULE PO ×3 (08:40→22:05)
[2020-11-19] MEDS: Ibuprofen 400 MG TABLET PO ×2 (13:32→20:23)
[2020-11-19] MEDS: hydrOXYzine HCL 25 MG TABLET PO (13:33)
--- NOTE | 2020-11-19 16:56 | HO.PSYCHPN ---
Subjective Subjective Date of Service: 11/19/20 Reason For Visit: SI Interim History: Pt with bright, non labile affect. Pt reports she had visit with her mother yesterday who reports she is doing much better. Pt reports less symptoms of depression. She is more future oriented and continues to express motivation to do residential substance use treatment program. She denies SI/HI. She reports some difficulty sleeping. MSE Appearance: casually groomed, fair hygiene, in NAD Behavior: calm, cooperative Psychomotor: no agitation or retardation noted Speech: clear, normal rate/rhythm/volume, spontaneous TP: linear TC: no signs of psychosis, tearful but future oriented Mood: better Affect:brighter, non labile AH/VH:none Delusions:none Insight/judgment:fair x 2. Memory/cog: alert, oriented x 3. grossly intact to conversational testing Review of Systems Review of Systems Unable to answer review systems secondary to patient's condition Yes all other systems are reviewed and are negative Mental Status Exam Mental Status Exam Narrative: Appearance: casually groomed, fair hygiene, tearful, in NAD Behavior: calm, cooperative Psychomotor: no agitation or retardation noted Speech: clear, normal rate/rhythm/volume, spontaneous TP: linear TC: no signs of psychosis, more hopeful, future oriented Mood: better Affect:brighter AH/VH:none Delusions:none Insight/judgment:fair x 2 Memory/cog: alert, oriented x 3. grossly intact to conversational testing Diagnostics Vital Signs (24Hr): Vital Signs - 24 hr 11/19/20 06:10 Temperature 97.2 F Pulse Rate 75 Respiratory Rate 16 Blood Pressure 103/57 L Pulse Oximetry 100 Body Mass Index 24.1 Labs Results: 11/15/20 05:14 11/15/20 05:14 Medications Medications Current Medications Generic Name Dose Route Start Last Admin Trade Name Freq PRN Reason Stop Dose Admin Amoxicillin/Clavulanate Potassium 875 mg 11/16/20 09:00 11/19/20 08:40 Amoxicillin/Potassium Clav 875 Mg Tablet PO 11/20/20 09:01 875 mg BID [facility] Administration Chlordiazepoxide HCl 50 mg 11/16/20 11:41 11/18/20 08:03 Chlordiazepoxide Hcl 25 Mg Capsule PO 50 mg Q6H PRN Administration Alcohol Withdrawal Folic Acid 1 mg 11/16/20 09:00 11/19/20 08:40 Folic Acid 1 Mg Tablet PO 1 mg DAILY [facility] Administration Gabapentin 300 mg 11/16/20 09:00 11/19/20 14:31 Gabapentin 300 Mg Capsule PO 300 mg TID [facility] Administration Hydroxyzine HCl 25 mg 11/18/20 18:21 11/19/20 13:33 Hydroxyzine Hcl 25 Mg Tablet PO 25 mg Q4H PRN Administration Anxiety Ibuprofen 400 mg 11/17/20 08:53 11/19/20 13:32 Ibuprofen 400 Mg Tablet PO 400 mg Q6H PRN Administration Pain, Moderate (Pain Scale 4-6 Naltrexone HCl 50 mg 11/17/20 12:50 11/19/20 08:40 Naltrexone Hcl 50 Mg Tablet PO 50 mg DAILY [facility] Administration Sertraline HCl 75 mg 11/18/20 09:00 11/19/20 08:39 Sertraline Hcl 50 Mg Tablet PO 75 mg DAILY [facility] Administration Thiamine HCl 100 mg 11/16/20 09:00 11/19/20 08:40 Thiamine Hcl 100 Mg Tablet PO 100 mg DAILY [facility] Administration Allergies Allergies Allergy/AdvReac Type Severity Reaction Status Date / Time aspirin [Aspirin] Allergy Unknown STOMACH Verified 11/13/20 15:01 [facility] Assessment & Plan Assessment & Plan (1) MDD (major depressive disorder), recurrent episode, moderate: Status: Acute Code(s): F33.1 - Major depressive disorder, recurrent, moderate Assessment and Plan: 1. Increase Sertraline to 100mg po daily 2. Start trazodone 50mg po qhs. (2) Alcohol dependence: Status: Acute Code(s): F10.20 - Alcohol dependence, uncomplicated Assessment and Plan: 1. d/c Librium protocol 2. will discuss further medication for alcohol cravings 3. continue gabapetin 300mg po TID 4. continue thiamine, folic acid. 5. Continue Naltrexone (3) Cocaine abuse: Status: Acute Code(s): F14.10 - Cocaine abuse, uncomplicated Greater than 50% of the session was spent on counseling and/or coordination of care Reason for contiued inpatient stay Substantial Risk for: harm to self
[2020-11-19 18:00] VITALS: BP 131/87; PULSE 93; TEMP 36.1
[2020-11-19] MEDS: traZODone HCL 100 MG TABLET PO (22:05)
[2020-11-20 06:00] VITALS: BP 104/68; PULSE 84; RESP 16; TEMP 36.2; O2SAT 99
[2020-11-20] MEDS: Ibuprofen 400 MG TABLET PO ×2 (06:50→19:24)
[2020-11-20] MEDS: Amoxicillin/Potassium Clav 875 MG TABLET PO (08:45)
[2020-11-20] MEDS: Naltrexone HCl 50 MG TABLET PO (08:46)
[2020-11-20] MEDS: Gabapentin 300 MG CAPSULE PO ×3 (08:46→21:30)
[2020-11-20] MEDS: Sertraline HCL 50 MG TABLET 100 MG PO (08:46)
[2020-11-20] MEDS: Thiamine HCL 100 MG TABLET PO (08:46)
[2020-11-20] MEDS: Folic Acid 1 MG TABLET PO (08:46)
--- NOTE | 2020-11-20 09:24 | P.PNPSI_ITS ---
Subjective Subjective Date of Service: 11/21/20 Reason For Visit: SI Interim History: Pt somewhat irritable due to incident with peer. Pt asking for policies of the unit. Pt redirected to bring any concerns to director of community center, Ursula Menary. Overall, pt reports decreased symptoms of depression. She denies suicidal or homicidal ideation. She reports eating and sleeping well. She has been visible in the unit, attends some groups. Some antagonistic behaviors with staff when redirected. MSE Appearance: casually groomed, fair hygiene, in NAD Behavior: calm, cooperative Psychomotor: no agitation or retardation noted Speech: clear, normal rate/rhythm/volume, spontaneous TP: linear TC: no signs of psychosis, tearful but future oriented Mood: better Affect:brighter, non labile AH/VH:none Delusions:none Insight/judgment:fair x 2. Memory/cog: alert, oriented x 3. grossly intact to conversational testing Review of Systems Review of Systems Unable to answer review systems secondary to patient's condition Yes all other systems are reviewed and are negative Mental Status Exam Mental Status Exam Narrative: Appearance: casually groomed, fair hygiene, tearful, in NAD Behavior: calm, cooperative Psychomotor: no agitation or retardation noted Speech: clear, normal rate/rhythm/volume, spontaneous TP: linear TC: no signs of psychosis, more hopeful, future oriented Mood: better Affect:brighter AH/VH:none Delusions:none Insight/judgment:fair x 2 Memory/cog: alert, oriented x 3. grossly intact to conversational testing Diagnostics Vital Signs (24Hr): Vital Signs - 24 hr 11/20/20 19:08 11/21/20 06:00 Temperature 97.7 F 98.6 F Pulse Rate 83 69 Respiratory Rate 18 Blood Pressure 129/82 109/74 Body Mass Index 24.1 Labs Results: 11/15/20 05:14 11/15/20 05:14 Medications Medications Current Medications Generic Name Dose Route Start Last Admin Trade Name Lobo PRN Reason Stop Dose Admin Folic Acid 1 mg 11/16/20 09:00 11/21/20 08:22 Folic Acid 1 Mg Tablet PO 1 mg DAILY [facility] Administration Gabapentin 300 mg 11/16/20 09:00 11/21/20 08:22 Gabapentin 300 Mg Capsule PO 300 mg TID [facility] Administration Hydroxyzine HCl 25 mg 11/18/20 18:21 11/21/20 05:22 Hydroxyzine Hcl 25 Mg Tablet PO 25 mg Q4H PRN Administration Anxiety Ibuprofen 400 mg 11/17/20 08:53 11/21/20 05:22 Ibuprofen 400 Mg Tablet PO 400 mg Q6H PRN Administration Pain, Moderate (Pain Scale 4-6 Naltrexone HCl 50 mg 11/17/20 12:50 11/21/20 08:22 Naltrexone Hcl 50 Mg Tablet PO 50 mg DAILY [facility] Administration Sertraline HCl 100 mg 11/20/20 09:00 11/21/20 08:22 Sertraline Hcl 50 Mg Tablet PO 100 mg DAILY [facility] Administration Thiamine HCl 100 mg 11/16/20 09:00 11/21/20 08:22 Thiamine Hcl 100 Mg Tablet PO 100 mg DAILY [facility] Administration Trazodone HCl 100 mg 11/19/20 21:00 11/20/20 21:30 Trazodone Hcl 100 Mg Tablet PO 100 mg BEDTIME [facility]A Administration Allergies Allergies Allergy/AdvReac Type Severity Reaction Status Date / Time aspirin [Aspirin] Allergy Unknown STOMACH Verified 11/13/20 15:01 [facility] Assessment & Plan Assessment & Plan (1) MDD (major depressive disorder), recurrent episode, moderate: Status: Acute Code(s): F33.1 - Major depressive disorder, recurrent, moderate Assessment and Plan: 1. Increase Sertraline to 100mg po daily 2. Start trazodone 50mg po qhs. (2) Alcohol dependence: Status: Acute Code(s): F10.20 - Alcohol dependence, uncomplicated Assessment and Plan: 1. d/c Librium protocol 2. will discuss further medication for alcohol cravings 3. continue gabapetin 300mg po TID 4. continue thiamine, folic acid. 5. Continue Naltrexone (3) Cocaine abuse: Status: Acute Code(s): F14.10 - Cocaine abuse, uncomplicated Greater than 50% of the session was spent on counseling and/or coordination of care Reason for contiued inpatient stay Substantial Risk for: harm to self
--- NOTE | 2020-11-20 14:10 | MHC.RECOVSUP ---
? Reason for consult:Continuity of care o Current location: [facility] o Identified substance use concern: ETOH - Overdose - Withdrawal - Support ? Intervention: o MAT started or to be started o Community resources provided o Harm reduction discussion ? Plan: o Referral to [facility] o Patient to follow up with [facility] after discharge ? Additional information:PT. started MAT and is going to f/u with [facility].
[2020-11-20] MEDS: hydrOXYzine HCL 25 MG TABLET PO (19:02)
[2020-11-20 19:08] VITALS: BP 129/82; PULSE 83; RESP 18; TEMP 36.5
[2020-11-20] MEDS: traZODone HCL 100 MG TABLET PO (21:30)
--- NOTE | 2020-11-20 22:30 | PC.NURSE ---
PATIENT SLEEPING AT THIS TIME.
[2020-11-21] MEDS: Ibuprofen 400 MG TABLET PO ×2 (05:22→14:23)
[2020-11-21] MEDS: hydrOXYzine HCL 25 MG TABLET PO ×2 (05:22→14:23)
[2020-11-21 06:00] VITALS: BP 109/74; PULSE 69; TEMP 37
[2020-11-21] MEDS: Sertraline HCL 50 MG TABLET 100 MG PO (08:22)
[2020-11-21] MEDS: Naltrexone HCl 50 MG TABLET PO (08:22)
[2020-11-21] MEDS: Gabapentin 300 MG CAPSULE PO ×2 (08:22→14:21)
[2020-11-21] MEDS: Folic Acid 1 MG TABLET PO (08:22)
[2020-11-21] MEDS: Thiamine HCL 100 MG TABLET PO (08:22)
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
== END 2020-11-21 15:25 | disposition home or self-care (01) | DRG 885 ==
LOC: HO.ED 11-16 00:25 → HO.PM5 11-16 04:37
PROVIDERS: Admitting Provider Psychiatry & Neurology Psychiatry; Emergency Provider Emergency Medicine Emergency Medical Services; Visit Provider Social Worker
DX: F33.1 Major depressive disorder, recurrent, moderate (principal); N39.0 Urinary tract infection, site not specified; F10.131 Alcohol abuse with withdrawal delirium; F14.10 Cocaine abuse, uncomplicated; Z23 Encounter for immunization; Z20.822 Contact with and (suspected) exposure to COVID-19; Z79.899 Other long term (current) drug therapy
CPT/HCPCS: 36415; 80048; 80307; 80320; 81001; 81025; 85007; 85027; 87086; 87635; 90471; 90686; 93005; 99285

== ENCOUNTER → 2020-11-23 13:44 | Outpatient (BNVA) | payer MEDICARE, MEDICAID, SELFPAY | PROVIDERS: Visit Provider Internal Medicine | DX: F10.10 Alcohol abuse, uncomplicated (principal) | CPT/HCPCS: 80305; 99202 ==

== ENCOUNTER 2023-06-18 11:49 | Outpatient (AMB) | payer MEDICARE, MEDICAID, SELFPAY ==
--- NOTE | 2023-06-18 12:24 | MHC.OFFWIV ---
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 yellow/white discharge bilaterlly. No fevers, chills,headche, vision changes, dizziness. weakness, trauma Plan- b/l conjunctival injection w/ yellow/ white dc from eyes Likely conjunctivitis. Unlikley acute angle glaucoma, blow out fx. Plan- erythromycin ointment, warm compresses. PFSH Medical History Alcohol use disorder, mild, abuse Alcohol use disorder Scoliosis ETOH abuse Social History Household Members: Family Do you presently have visiting nurse or other home services: No Patient Tobacco Use Status: Never used Tobacco Substance Use Type: Crack/Cocaine and Marijuana service: No Sexual orientation: Straight/Heterosexual Review of Systems Const Details: Constitutional : No Weight loss, No Fever, No Chills, No Fatigue, No Malaise ENT/Mouth : No sore throat, No Rhinorrhea Eyes: + Eye Pain, No Swelling, + Redness Cardiovascular : No Chest Pain, No SOB, No Dyspnea on Exertion, No Orthopnea, No Edema, No Palpitations Respiratory : No Cough, No Sputum, No Wheezing Gastrointestinal : No Nausea, No Vomiting, No Diarrhea, No Constipation, No abdominal Pain, No Hematochezia, No Melena Genitourinary : No Dysuria, No Urinary Frequency, No Hematuria, Musculoskeletal : No joint pain, No Myalgias, No Joint Swelling Skin : No Skin Lesions, No rash Neuro : No Weakness, No Numbness, No Dizziness, No Headache Psych : No Anxiety/Panic, No Depression All other systems reviewed and are negative All systems reviewed & are unremarkable except as noted in HPI and below Physical Exam Vital Signs: Last Vital Signs Temp 97.9 F 06/18/23 12:27 Pulse 113 H 06/18/23 12:27 BP 122/76 06/18/23 12:27 Pulse Ox 98 06/18/23 12:27 vss Appearance: Alert.? Oriented X3.? No acute distress.? Head: Normocephalic, atraumatic, no step-offs or deformities Eyes: Pupils equal, round and reactive to light.? Neck: Normal inspection.? Neck supple.? CVS: Normal heart rate and rhythm.? Pulses normal.? Respiratory: No respiratory distress.? Breath sounds normal.? Abdomen: Soft and nontender.? Skin: Skin warm and dry.? Normal skin color.? Normal skin turgor.? Extremities: No lower extremity edema.? No calf ttp. 5/5 strength to bilateral upper and lower extremities Back: No midline tenderness, no C-spine tenderness, full range of motion, no CVA tenderness bilaterally Neuro: Oriented X 3.? No motor deficit.? No sensory deficit. CN 2-12 intact Assessment & Plan Assessment & Plan (1) [place] eye: Code(s): H10.029 - Other mucopurulent conjunctivitis, unspecified eye Plan Take your medications as prescribed. If you were prescribed antibiotics today, it is important that you take your medication to their entirety, do not skip any doses, do not finish them early. Follow-up with your primary care provider this week. Return to the emergency department with new or worsening symptoms. Such as fevers, chills, chest pain, shortness of breath, nausea, vomiting, dizziness, headache, vision changes, lethargy In case of emergency call 911 Medications: New erythromycin 0.5 inches ophthalmic (eye) BID 7 days 3.5 grams 0RF Coding Level of Care Code Est Pt Level 3 (93950) Diagnoses [place] eye H10.029
[2023-06-18 12:27] VITALS: BP 122/76; PULSE 113; TEMP 36.6; O2SAT 98
== END 2023-06-18 12:37 | disposition home or self-care (01) ==
PROVIDERS: Visit Provider Physician Assistant
DX: H10.029 Other mucopurulent conjunctivitis, unspecified eye (principal)
CPT/HCPCS: 99213

== ENCOUNTER 2023-09-30 13:34 | Emergency (ER) | payer MEDICARE, MEDICAID, SELFPAY ==
--- NOTE | 2023-09-30 | ECG_ITS ---
Test Reason : OVERDOSED Blood Pressure : / mmHG Vent. Rate : 078 BPM Atrial Rate : 078 BPM P-R Int : 160 ms QRS Dur : 078 ms QT Int : 390 ms P-R-T Axes : 000 175 138 degrees QTc Int : 444 ms Suspect limb lead reversal, interpretation assumes no reversal Normal sinus rhythm Left posterior fascicular block Abnormal ECG When compared with ECG of 30-SEP-2023 14:15, Left posterior fascicular block is now Present Referred By: Yesika Villarreal Electronically Signed By:CHANDAN CRUZ MD
--- NOTE | 2023-09-30 13:43 | ECG_ITS ---
Test Reason : RIVED Blood Pressure : / mmHG Vent. Rate : 069 BPM Atrial Rate : 069 BPM P-R Int : 150 ms QRS Dur : 078 ms QT Int : 398 ms P-R-T Axes : 052 014 040 degrees QTc Int : 426 ms Normal sinus rhythm Normal ECG When compared with ECG of 16-NOV-2020 00:20, T wave inversion no longer evident in Lateral leads QT has shortened Referred By: Akhil Schwartz Electronically Signed By:CHANDAN CRUZ MD
[2023-09-30 13:44] VITALS: BP 148/91; PULSE 83; RESP 14; TEMP 36.1; O2SAT 97; BMI 25.5
--- NOTE | 2023-09-30 13:50 | ED.GENADULT ---
HPI - General Adult General Chief complaint: Overdose Stated complaint: ETOH Crisis Time Seen by Provider: 09/30/23 14:12 Source: patient Mode of arrival: ambulatory Limitations: no limitations History of Present Illness HPI narrative: Patient comes to the emergency room stating that she has an alcoholic, admits to drinking heavily this morning. Also took 12 tablets of olanzapine 5 mg each with intention of killing herself. Patient states that she is trying to stop drinking. Denies HI. Patient complaining of chest pressure, hyperventilating, feeling very anxious, denies any other symptoms. Related Data Home Medications Medication Instructions Recorded Confirmed lamotrigine 100 mg tablet 50 mg PO DAILY 09/30/23 09/30/23 (Lamictal) olanzapine 5 mg tablet 5 mg PO BID 09/30/23 09/30/23 propranolol 10 mg tablet 10 mg PO TID 09/30/23 09/30/23 Previous Rx's Medication Instructions Recorded folic acid 1 mg tablet 1 mg PO DAILY 30 days #30 tabs 11/21/20 naltrexone 50 mg tablet 50 mg PO DAILY 30 days #30 tabs 11/21/20 sertraline 100 mg tablet 100 mg PO DAILY 30 days #30 tabs 11/21/20 thiamine mononitrate (vit B1) 100 100 mg PO DAILY 30 days #30 tabs 11/21/20 mg tablet naltrexone microspheres 380 mg 380 mg IM Q4W #1 ea 11/26/20 intramuscular suspension,extended release (Vivitrol) erythromycin 5 mg/gram (0.5 %) eye 0.5 inch ophthalmic (eye) BID 7 06/18/23 ointment days #3.5 grams Allergies Allergy/AdvReac Type Severity Reaction Status Date / Time aspirin [Aspirin] Allergy Unknown STOMACH Verified 06/18/23 12:29 ULCERS pine Allergy Intermediate Difficulty Uncoded 06/18/23 12:24 Breathing Review of Systems Review of Systems: Constitutional : No Weight loss, No Fever, No Chills, No Night Sweats, No Fatigue, No Malaise ENT/Mouth : No Hearing loss, No Ear Pain, No Nasal Congestion, No Sinus Pain, No Hoarseness, No sore throat, No Rhinorrhea, No Swallowing Difficulty Eyes: No Eye Pain, No Swelling, No Redness, No Foreign Body, No Discharge, No Vision Changes Cardiovascular : Complaining of chest pressure, No Chest Pain, No SOB, No Dyspnea on Exertion, No Orthopnea, No Edema, No Palpitations Respiratory : No Cough, No Sputum, No Wheezing, No Smoke Exposure, No Dyspnea Gastrointestinal : No Nausea, No Vomiting, No Diarrhea, No Constipation, No abdominal Pain, No Hematochezia, No Melena Genitourinary : no irregular bleeding, No Dysuria, No Urinary Frequency, No Hematuria, No Urinary Incontinence, No Urgency, No Flank Pain, No Urinary Flow Changes, No Hesitancy Musculoskeletal : No joint pain, No Myalgias, No Joint Swelling Skin : No Skin Lesions, No rash Neuro : No Weakness, No Numbness, No Paresthesias, No Loss of Consciousness, No Dizziness, No Headache Psych : Complaining of anxiety, depression, suicide attempt, alcohol abuse, no HI Heme/Lymph: No Bruising, No Bleeding,No Lymphadenopathy Endocrine : No Polyuria, No Polydipsia, No Temperature Intolerance PMFSH Past Medical History Medical History Alcohol use disorder, mild, abuse Alcohol use disorder Scoliosis ETOH abuse Social History Social History Household Members: Family Do you presently have visiting nurse or other home services: No Comment: gait steady Patient Tobacco Use Status: Never used Tobacco Smoked in Last 30 Days: No Substance Use Type: Marijuana Last Used Substance: Days (ago) Advance Directives: No Advance Directives Information Provided: No Patient : No service: No Sexual orientation: Straight/Heterosexual Physical Exam ED Vital Signs: Vital Signs - 24 hr 09/30/23 13:44 09/30/23 13:53 09/30/23 16:47 Temperature 97 F 97.3 F Pulse Rate 83 78 87 Respiratory Rate 14 18 16 Blood Pressure 148/91 H 160/91 H 133/98 H Pulse Oximetry 97 100 98 Oxygen Delivery Method Room Air Room Air Room Air 09/30/23 18:23 Temperature 98 F Pulse Rate 81 Respiratory Rate 16 Blood Pressure 132/82 Pulse Oximetry 98 Oxygen Delivery Method Room Air BMI result Body Mass Index 25.5 Const Other: Appearance: Alert. Oriented X3. Very anxious, belligerent, yelling Eyes: Pupils equal, round and reactive to light. ENT: Pharynx normal. Neck: Normal inspection. Neck supple. No lymph nodes noted. No crepitus CVS: Normal heart rate and rhythm. Pulses normal. Normal S1 and S2 Respiratory: Hyperventilating from anxiety, No respiratory distress. Breath sounds normal. No Wheezing. No rales Abdomen: Soft and nontender. No rigidity. No distention. Skin: Skin warm and dry. Normal skin color. Normal skin turgor. Extremities: No lower extremity edema. No Lacerations. No Rash Neuro: Oriented X 3. No motor deficit. No sensory deficit. Moving all extremities. No slurred speech. CN 2 through 12 grossly intact Psych: Anxious belligerent and yelling and hyperventilating Course Course Course Narrative: RME: 37 yold female presents to the ED for alcohol abuse and taking 12 pills of olanzapine about and hour ago. patient sleepy, but responisve. vitals sign stable. patient brought to the ED to bed 19. labs, EKG ordered. placed on monitro Medications Administered Discontinued Medications Generic Name Dose Route Start Last Admin Trade Name Freq PRN Reason Stop Dose Admin Al Hydroxide/Mg Hydroxide 30 ml 09/30/23 18:36 09/30/23 19:32 Magnesium Hydrox/Alum Hydrox 30 Ml Oral.Susp PO 09/30/23 18:37 30 ml ONCE ONE Administration Famotidine 20 mg 09/30/23 18:36 09/30/23 19:32 Famotidine/Pf 20 Mg/2 Ml Vial IVPUSH 09/30/23 18:37 20 mg ONCE ONE Administration Sodium Chloride 1,000 mls @ 999 mls/hr 09/30/23 13:55 09/30/23 18:07 Ns IV 09/30/23 14:55 Infused .Q1H1M STA Infusion Lorazepam 2 mg 09/30/23 14:50 09/30/23 14:57 Lorazepam 1 Mg Tablet PO 09/30/23 14:51 2 mg ONCE ONE Administration Lorazepam 2 mg 09/30/23 18:36 09/30/23 19:32 Lorazepam 1 Mg Tablet PO 09/30/23 18:37 2 mg ONCE ONE Administration Medical Decision Making Medical Decision Making [facility] Narrative: -my interpretation of EKG, normal sinus rhythm, heart rate 69, no ST segment depression or elevation, no T-wave inversion, QTC 426 -patient is on a Section 12 -patient very anxious, given 2 mg p.o. lorazepam -my interpretation of labs: Normal hematology, baseline, chemistry does not show any acute abnormalities any to be addressed. Troponin negative, hCG negative. Patient has had blood in the urine before. Patient is to follow-up with her primary care physician, patient may need to follow-up with Urology. No UTI, urine toxicology positive for marijuana, the alcohol level 441 -patient is medically cleared to be seen by the care team Differential Diagnosis Differential Diagnoses: The differential diagnosis associated with the presentation includes (Anxiety, depression, polysubstance abuse, alcohol intoxication, alcohol dependence) Admission/Observation Consideration of admission/observation: Escalation of care including admission/observation considered (Patient is on a Section 12, waiting to be seen by the care team) Lab Data MDM Lab Attestation statement: I reviewed the patient's lab results. 09/30/23 14:35 09/30/23 14:35 Labs: Lab Results 09/30/23 09/30/23 Range/Units 14:35 14:45 WBC 7.2 (4.8-10.8) X10*3/uL RBC 4.46 (4.20-5.50) X10*6/uL Hgb 14.5 (12.0-16.0) g/dl Hct 42.9 (37.0-47.0) % MCV 96.2 (80.0-98.0) fL MCH 32.5 (27.0-33.0) pg MCHC 33.8 (31.0-35.0) g/dl RDW 14.9 (11.0-16.0) % Plt Count 402 H (160-400) X10*3/uL MPV 9.5 (9.4-12.3) fL Immature Gran % (Auto) 0.3 (0.0-0.4) % Neut % (Auto) 30.9 L (45-73) % Lymph % (Auto) 56.5 H (20-40) % Bradford % (Auto) 7.9 (2-11) % Eos % (Auto) 3.0 (0-4) % Baso % (Auto) 1.4 (0-2) % Lymph # (Auto) 4.1 (1.2-4.9) X10*3/uL Bradford # (Auto) 0.6 (0.1-1.2) X10*3/uL Eos # (Auto) 0.2 (0.0-0.4) X10*3/uL Baso # (Auto) 0.1 (0.0-0.2) X10*3/uL Abs Immat Gran (auto) 0.02 (0.00-0.03) X10*3/uL Absolute Neuts (auto) 2.2 (2.0-8.3) x10*3/uL Absolute Nucleated RBC 0.000 (0.0-0.012) X10*3/uL Nucleated RBC % (auto) 0.0 (0.0-0.2) /100WBC PT 11.0 L (11.1-13.3) SEC INR 0.9 (0.9-1.1) APTT 34.9 (26.0-36.8) SEC Sodium 145 (135-145) mmol/L Potassium 4.4 (3.3-5.1) mmol/L Chloride 110 H (96-108) mmol/L Carbon Dioxide 21 L (22-29) mmol/L Anion Gap 18 (12-20) BUN 7 L (9-16) mg/dL Creatinine 0.74 (0.5-1.4) mg/dL Estim Creat Clear Calc 88.1 Estimated GFR > 60 Random Glucose 96 (60-115) mg/dL Calcium 9.2 (8.4-10.2) mg/dL Magnesium 1.9 (1.6-2.6) mg/dL Total Bilirubin 0.3 (0.0-1.0) mg/dL AST 39 H (5-31) U/L ALT 23 (0-31) U/L Alkaline Phosphatase 62 (39-117) U/L Troponin I High Sens < 2.7 (<3.5-17.0) ng/L Total Protein 8.1 H (6.5-8.0) g/dL Albumin 4.7 (3.5-5.0) g/dL Beta HCG, Quant < 2 mIU/mL Urine Color Yellow Urine Appearance Cloudy Urine pH 5.5 (5.0-9.0) Ur Specific Woodman 1.015 (1.005-1.025) Urine Protein 30 (1+) H (Neg-Trace) mg/dL Urine Glucose (UA) Negative (Negative) mg/dL Urine Ketones Negative (Negative) mg/dL Urine Blood Trace H (Negative) Urine Nitrite Negative (Negative) Ur Leukocyte Esterase Small (1+) H (Negative) Urine RBC 0-2 (0-2) /HPF Urine WBC 0-5 (0-5) /HPF Ur Squamous Epith Cells >20 (0-2) /HPF Urine Bacteria Trace (None Seen) Hyaline Casts 0-2 (0-2) /LPF Salicylates < 5.0 L (15-30) mg/dL Urine Opiates Screen Not Detected (Not Detect) Urine Fentanyl Screen Not Detected (Not Detect) Acetaminophen < 3 (<30) mcg/mL Ur Barbiturates Screen Not Detected (Not Detect) Ur Phencyclidine Scrn Not Detected (Not Detect) Ur Amphetamines Screen Not Detected (Not Detect) U Benzodiazepines Scrn Not Detected (Not Detect) Urine Cocaine Screen Not Detected (Not Detect) U Marijuana (THC) Screen POSITIVE H (Not Detect) Ethyl Alcohol 441 H* mg/dL Independent Interpretation I performed an independent interpretation of an: EKG Interpretation: My interpretation of EKG: Normal sinus rhythm, heart rate 69, no ST segment depression or elevation, no T-wave inversion, QTC 426 Discharge Plan Discharge Clinical Impression: Alcohol use disorder, Suicide attempt Patient Disposition: Still a Patient Prescriptions: No Action Vivitrol 380 mg suspension,extended rel recon 380 mg IM Q4W Qty: 1 5RF naltrexone 50 mg Tablet 50 mg PO DAILY 30 Days Qty: 30 0RF sertraline 100 mg tablet 100 mg PO DAILY 30 Days Qty: 30 0RF folic acid 1 mg Tablet 1 mg PO DAILY 30 Days Qty: 30 0RF thiamine mononitrate (vit B1) 100 mg Tablet 100 mg PO DAILY 30 Days Qty: 30 0RF olanzapine 5 mg tablet 5 mg PO BID propranolol 10 mg tablet 10 mg PO TID lamotrigine [Lamictal] 100 mg tablet 50 mg PO DAILY erythromycin 5 mg/gram (0.5 %) ointment 0.5 inch ophthalmic (eye) BID 7 Days Qty: 3.5 0RF
[2023-09-30 13:53] VITALS: BP 160/91; PULSE 78; RESP 18; O2SAT 100
[2023-09-30 14:45] LABS: MANUAL DIFF FLAG NO
[2023-09-30] MEDS: 0.9 % Sodium Chloride 1,000 ML 999 ML IV (14:45)
--- NOTE | 2023-09-30 14:52 | ED.GENADULT ---
HPI - General Adult General Chief complaint: Overdose Stated complaint: ETOH Crisis Time Seen by Provider: 09/30/23 14:12 Source: patient Mode of arrival: ambulatory Limitations: no limitations History of Present Illness HPI narrative: Patient comes to the emergency room stating that she has been drinking heavily, admits to be an alcoholic. Patient took 12 tablets of olanzapine 5 mg each with the intention of killing herself. Related Data Previous Rx's Medication Instructions Recorded folic acid 1 mg tablet 1 mg PO DAILY 30 days #30 tabs 11/21/20 naltrexone 50 mg tablet 50 mg PO DAILY 30 days #30 tabs 11/21/20 sertraline 100 mg tablet 100 mg PO DAILY 30 days #30 tabs 11/21/20 thiamine mononitrate (vit B1) 100 100 mg PO DAILY 30 days #30 tabs 11/21/20 mg tablet naltrexone microspheres 380 mg 380 mg IM Q4W #1 ea 11/26/20 intramuscular suspension,extended release (Vivitrol) erythromycin 5 mg/gram (0.5 %) eye 0.5 inch ophthalmic (eye) BID 7 06/18/23 ointment days #3.5 grams Allergies Allergy/AdvReac Type Severity Reaction Status Date / Time aspirin [Aspirin] Allergy Unknown STOMACH Verified 06/18/23 12:29 ULCERS pine Allergy Intermediate Difficulty Uncoded 06/18/23 12:24 Breathing PMFSH Past Medical History Medical History Alcohol use disorder, mild, abuse Alcohol use disorder Scoliosis ETOH abuse Social History Social History Household Members: Family Do you presently have visiting nurse or other home services: No Comment: gait steady Patient Tobacco Use Status: Never used Tobacco Substance Use Type: Crack/Cocaine and Marijuana service: No Sexual orientation: Straight/Heterosexual Physical Exam ED Vital Signs: Vital Signs - 24 hr 09/30/23 13:44 09/30/23 13:53 Temperature 97 F Pulse Rate 83 78 Respiratory Rate 14 18 Blood Pressure 148/91 H 160/91 H Pulse Oximetry 97 100 Oxygen Delivery Method Room Air Room Air BMI result Body Mass Index 25.5 Medications Administered Generic Name Dose Route Start Last Admin Trade Name Freq PRN Reason Stop Dose Admin Sodium Chloride 1,000 mls @ 999 mls/hr 09/30/23 13:55 09/30/23 14:45 Ns IV 09/30/23 14:55 999 mls/hr .Q1H1M STA Administration Medical Decision Making Lab Data 09/30/23 14:35 09/30/23 14:35 Discharge Plan Discharge Prescriptions: No Action Vivitrol 380 mg suspension,extended rel recon 380 mg IM Q4W Qty: 1 5RF naltrexone 50 mg Tablet 50 mg PO DAILY 30 Days Qty: 30 0RF sertraline 100 mg tablet 100 mg PO DAILY 30 Days Qty: 30 0RF folic acid 1 mg Tablet 1 mg PO DAILY 30 Days Qty: 30 0RF thiamine mononitrate (vit B1) 100 mg Tablet 100 mg PO DAILY 30 Days Qty: 30 0RF erythromycin 5 mg/gram (0.5 %) ointment 0.5 inch ophthalmic (eye) BID 7 Days Qty: 3.5 0RF
[2023-09-30 14:53] LABS: Basophils Absolute Auto 0.1 X10*3/uL (0.0-0.2); Basophils Percent Auto 1.4 % (0-2); Eosinophils Absolute Auto 0.2 X10*3/uL (0.0-0.4); Hematocrit 42.9 % (37.0-47.0); Hemoglobin 14.5 g/dl (12.0-16.0); Imm Gran Abs Auto 0.02 X10*3/uL (0.00-0.03); Imm Gran Pct Auto 0.3 % (0.0-0.4); Lymphocytes Absolute Auto 4.1 X10*3/uL (1.2-4.9); Lymphocytes Percent Auto 56.5 % (20-40); Mean Corpuscular HGB Conc 33.8 g/dl (31.0-35.0); Mean Corpuscular Hemoglobin 32.5 pg (27.0-33.0); Mean Corpuscular Volume 96.2 fL (80.0-98.0); Mean Platelet Volume 9.5 fL (9.4-12.3); Monocytes Absolute Auto 0.6 X10*3/uL (0.1-1.2); Monocytes Percent Auto 7.9 % (2-11); Neutrophils Absolute Auto 2.2 x10*3/uL (2.0-8.3); Neutrophils Percent Auto 30.9 % (45-73); Platelet Count 402 X10*3/uL (160-400); Red Blood Count 4.46 X10*6/uL (4.20-5.50); Red Cell Distribution Width 14.9 % (11.0-16.0); White Blood Count 7.2 X10*3/uL (4.8-10.8)
[2023-09-30 14:54] LABS: Appearance Urine Cloudy; Color Urine Yellow; Glucose Urine UA Negative (Negative); Leukocyte Esterase Urine Small (1+) (Negative); Nitrite Urine Negative (Negative); PH 5.5 (5.0-9.0); Specific Gravity - Urine 1.015 (1.005-1.025); UMIC TRIGGER UACC YES; Urine Blood Trace (Negative); Urine Ketones Negative (Negative); Urine Protein 30 (1+) mg/dL (Neg-Trace)
[2023-09-30] MEDS: LORazepam 1 MG TABLET 2 MG PO ×2 (14:57→19:32)
[2023-09-30 14:59] LABS: INTERNATIONAL NORM RATIO 0.9 (0.9-1.1)
[2023-09-30 15:01] LABS: Amphetamine Screen Urine Not Detected (Not Detect); Barbiturates, Urine Not Detected (Not Detect); Benzodiazepines Screen Urine Not Detected (Not Detect); Cannabinoid Screen Urine POSITIVE (Not Detect); Cocaine Screen Urine Not Detected (Not Detect); Fentanyl, urine Not Detected (Not Detect); Opiate Screen Urine Not Detected (Not Detect); Phencyclidine Screen Urine Not Detected (Not Detect)
[2023-09-30 15:01] LABS: Partial Thromboplastin Time 34.9 SEC (26.0-36.8)
[2023-09-30 15:14] LABS: Acetaminophen LAB < 3 mcg/mL (<30); Alanine Aminotransferase 23 U/L (0-31); Albumin Level 4.7 g/dL (3.5-5.0); Alkaline Phosphatase 62 U/L (39-117); Anion Gap 18 (12-20); Aspartate Amino Transferase 39 U/L (5-31); Bilirubin Total 0.3 mg/dL (0.0-1.0); Blood Urea Nitrogen 7 mg/dL (9-16); Calcium 9.2 mg/dL (8.4-10.2); Carbon Dioxide 21 mmol/L (22-29); Chloride 110 mmol/L (96-108); Creatinine Clr Calc Pharmacy 88.1; Estimated Glomerular Filt Rate > 60; Ethanol 441 mg/dL; Glucose Random 96 mg/dL (60-115); HCG Quantitative < 2 mIU/mL; Magnesium 1.9 mg/dL (1.6-2.6); Potassium 4.4 mmol/L (3.3-5.1); Salicylate < 5.0 mg/dL (15-30); Sodium 145 mmol/L (135-145); Total Protein 8.1 g/dL (6.5-8.0)
[2023-09-30 15:22] LABS: Bacteria Urine Trace (None Seen); Hyaline Casts Urine 0-2 /LPF (0-2); RBC Urine 0-2 /HPF (0-2); Squamous Epithelial Cell Urine >20 /HPF (0-2); UACC Culture Trigger YES; WBC Urine 0-5 /HPF (0-5)
[2023-09-30 15:44] LABS: Troponin-I High Sensitivity < 2.7 ng/L (<3.5-17.0)
--- NOTE | 2023-09-30 15:57 | PC.NURSE ---
Spoke with Posion control at approx 1330. Suppprtive care to be given. EKG every 2 x 3 then every 4. At this time, no labs back yet
--- NOTE | 2023-09-30 16:25 | MHC.EDTECH ---
PATIENT 2ND EKG IS DELAY ,BECAUSE BOTH EKG MACHINE IS IN USE ,RN BORIS AWARE .
[2023-09-30 16:47] VITALS: BP 133/98; PULSE 87; RESP 16; TEMP 36.3; O2SAT 98
--- NOTE | 2023-09-30 17:48 | PC.NURSE ---
spoke with poison control and reported labs and second EKG. Per our provider, no need for further EKG's
[2023-09-30 18:23] VITALS: BP 132/82; PULSE 81; RESP 16; TEMP 36.6; O2SAT 98
[2023-09-30] MEDS: Magnesium Hydrox/Alum Hydrox 30 ML ORAL.SUSP PO (19:32)
[2023-09-30] MEDS: Famotidine/PF 20 MG/2 ML VIAL IVPUSH (19:32)
--- NOTE | 2023-09-30 19:58 | MHC.RECOVSUP ---
? Reason for consult: o? ? ? Current location:?? o? ? ? Identified substance use concern:?? -Overdose? -Withdrawal? -Seeking ATS (detox) -Support? ? Intervention: oATS bed search started/completed/in process oMAT started or to be started? oCommunity resources provided oHarm reduction discussion ? Plan: oReferral to [facility]? Brad search in progress to? oFollow up tomorrow?? oPatient awaiting crisis evaluation oPatient to follow up with [facility] after discharge? ? Additional information:
--- NOTE | 2023-09-30 19:59 | MHC.RECOVSUP ---
? Reason for consult: ETOH o? Current location:?ED19 o? Identified substance use concern:? -? Support ? Intervention: o? Community resources provided o? Harm reduction discussion ? Plan: o? Referral to [facility] o? Patient to follow up with [facility] ? ? Additional information:JENIFER met with pt and discussed different treatment options, pt stated she'd like to try MAT and work with an outpatient clinic as she has to continue to work to sustain her bills/expenses. JENIFER provided this pt with recovery resources and contact information. Pt will follow up upon discharge from the ED. Provider informed
[2023-09-30 20:00] VITALS: BP 125/84; PULSE 82; RESP 16; TEMP 36.4; O2SAT 97
[2023-10-01 03:38] VITALS: BP 142/94; PULSE 109; RESP 18; TEMP 36.9; O2SAT 98
[2023-10-01] MEDS: Propranolol HCL 10 MG TABLET PO (09:19)
[2023-10-01] MEDS: OLANZapine 5 MG TABLET PO (09:20)
[2023-10-01] MEDS: lamoTRIgine 25 MG TABLET 50 MG PO (09:20)
--- NOTE | 2023-10-01 09:24 | PC.NURSE ---
pleasant. polite and cooperative, declined revia as she states it causes anxiety for her, skin wpd, speech clear and steady gait
[2023-10-01 09:42] VITALS: BP 161/100; PULSE 98; RESP 18; TEMP 36.6; O2SAT 99
--- NOTE | 2023-10-01 11:58 | MHC.RECOVRN ---
Met with pt in [facility] after cleared by CARE Team to discuss alcohol use. Pt had presented to the ED after alcohol use, taking olanzapine to attempt suicide, and desire to abstain from alcohol. Pt laying in bed, awake, alert, easily engages in conversation. Pt reports alcohol use, 4-5 nips lemonade vodka daily, last drink prior to presentation. Pt reports she began drinking in 2013 and has escalated to daily use. Pt reports she has decreased use, was drinking 7 nips daily. Pt currently continuing to decrease use, aware it is unsafe to stop abruptly. Pt reports hx withdrawal seizure in 2020. Denies current withdrawal symptoms. Pt denies hx tx for AUD, although does report having a prescription of naltrexone at home. Pt currently engaged in therapy through [facility], awaiting psychiatrist appt. Discussed recovery support options including inpatient, outpatient, recovery coaching, WING, IOP, pathways to recovery. Pt interested in naltrexone, is unable to recall if she ever took the medication. Educated pt on naltrexone and discussed [facility], pt interested in initiating care. Appt made for 10/07 at 1:30PM for intake. Pt denies other questions or concerns. Provided with written resources as well as t/w contact information if needed. Discussed with provider, plan to dc home and follow up with the [facility].
--- NOTE | 2023-10-01 15:37 | MHC.CARE ---
Rad Team completed the PHP form and faxed the form and Care Team assessment to Caren at [facility]. Will document to follow up tomorrow.
== END 2023-10-01 12:07 | disposition home or self-care (01) ==
PROVIDERS: Physician Assistant; Emergency Provider Emergency Medicine; PCP Internal Medicine
DX: T43.592A Poisoning by other antipsychotics and neuroleptics, intentional self-harm, initial encounter (principal); R40.0 Somnolence; Y92.9 Unspecified place or not applicable; F10.20 Alcohol dependence, uncomplicated; Y90.8 Blood alcohol level of 240 mg/100 ml or more; R07.9 Chest pain, unspecified; F14.10 Cocaine abuse, uncomplicated; F33.1 Major depressive disorder, recurrent, moderate; Z79.899 Other long term (current) drug therapy
CPT/HCPCS: 36415; 80053; 80143; 80179; 80307; 81001; 81003; 83735; 84484; 84702; 85025; 85610; 85730; 87086; 93005; 96361; 96374; 99285; S9485

== ENCOUNTER → 2023-09-30 13:43 | Outpatient (BNV) | payer MEDICARE, MEDICAID, SELFPAY | PROVIDERS: Emergency Provider Emergency Medicine; PCP Internal Medicine; Visit Provider Internal Medicine Cardiovascular Disease | DX: I44.5 Left posterior fascicular block (principal); R94.31 Abnormal electrocardiogram [ECG] [EKG] | CPT/HCPCS: 93010 ==

== ENCOUNTER 2023-10-07 13:30 | Outpatient (AMB) | payer MEDICARE, MEDICAID, SELFPAY ==
[2023-10-07 13:38] VITALS: BP 142/86; PULSE 76; O2SAT 97
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
== END 2023-10-07 14:37 | disposition home or self-care (01) ==
PROVIDERS: PCP Internal Medicine; Visit Provider Nurse Practitioner Family
DX: F10.90 Alcohol use, unspecified, uncomplicated (principal)
CPT/HCPCS: 99204

== ENCOUNTER → 2023-10-07 13:30 | Outpatient (BNVA) | payer MEDICARE, MEDICAID, SELFPAY | PROVIDERS: PCP Internal Medicine; Visit Provider Nurse Practitioner Family | DX: F10.20 Alcohol dependence, uncomplicated (principal) | CPT/HCPCS: 99202 ==

== ENCOUNTER 2023-10-12 10:09 | Outpatient (AMB) | payer MEDICARE, MEDICAID, SELFPAY ==
--- NOTE | 2023-10-12 13:06 | MHC.AM.SUB ---
Intake Intake Visit Reasons: MAT Visit Allergies aspirin [Aspirin] Allergy (Unknown, Verified 10/07/23 13:39) STOMACH ULCERS pine Allergy (Intermediate, Uncoded 10/07/23 13:39) Difficulty Breathing HPI MAT Visit HPI Details Patient presents via telehealth for follow up She reports she has only had beer for the last 3 days, reports taking sips here and there She denies withdrawal symptoms, she believes she is drinking enough not to experience any symptoms She reports mood and sleep are good and that she is feeling happy and hopeful PFSH Medical History Alcohol use disorder, mild, abuse Alcohol use disorder Scoliosis ETOH abuse Social History Household Members: Family Do you presently have visiting nurse or other home services: No Comment: gait steady Patient Tobacco Use Status: Never used Tobacco Substance Use Type: Marijuana service: No Sexual orientation: Straight/Heterosexual Review of Systems Const Reports as per HPI Assessment & Plan Assessment & Plan (1) Alcohol use disorder: Plan: -Reviewed with patient danger of decreasing alcohol intake too quickly -Reviewed with her to start tracking/measuring her alcohol intake -Reviewed medications with her as she had additional questions regarding the naltrexone -Follow up 2 weeks Telehealth Telehealth Location of provider rendering services: practice address Location of patient: address on file Patient Identification confirmed using: Name, : Yes Telehealth method: voice only Patient verbally consented to treatment: Yes Patient verbally consented to billing insurance company: Yes Patient informed of any privacy concerns related to visit: Yes Minutes spent on Phone/Video with Pt.: 20 Coding Level of Care Code Tele Est Pt Level 3 (01777) Diagnoses Alcohol use disorder F10.90
== END 2023-10-12 10:41 | disposition home or self-care (01) ==
PROVIDERS: PCP Internal Medicine; Visit Provider Nurse Practitioner Family
DX: F10.20 Alcohol dependence, uncomplicated (principal)
CPT/HCPCS: 99442

== ENCOUNTER → 2023-10-12 10:09 | Outpatient (BNVA) | payer MEDICARE, MEDICAID, SELFPAY | PROVIDERS: PCP Internal Medicine; Visit Provider Nurse Practitioner Family ==

== ENCOUNTER 2023-10-26 09:38 | Outpatient (AMB) | payer MEDICARE, MEDICAID, SELFPAY ==
--- NOTE | 2023-10-26 09:40 | MHC.AM.SUB ---
Intake Vital Signs 10/26/23 09:47 BP 120/60 Blood Pressure Location Rt brachial Position Sitting Respiration 20 Pulse Oximetry (%) 98 Oxygen Delivery Method Room Air Intake Visit Reasons: MAT Allergies aspirin [Aspirin] Allergy (Unknown, Verified 10/07/23 13:39) STOMACH ULCERS pine Allergy (Intermediate, Uncoded 10/07/23 13:39) Difficulty Breathing HPI MAT HPI Details Patient presents for treatment and follow up for AUD She reports she has been tolerating the oral naltrexone She has a new apartment she is moving into and is excited about it She reports she is going days at a time with no alcohol use, denies experiencing withdrawal symptoms on the days she abstains She feels as though the naltrexone has been helpful When she does have alcohol she reports 1 beer at night, or 2 nips She feels good about this considering prior use was 5 beers and a sleeve of nips nightly She would like to recieve the vivitrol injection PFSH Medical History Alcohol use disorder, mild, abuse Alcohol use disorder Scoliosis ETOH abuse Social History Household Members: Family Do you presently have visiting nurse or other home services: No Comment: gait steady Patient Tobacco Use Status: Never used Tobacco Substance Use Type: Marijuana service: No Sexual orientation: Straight/Heterosexual Review of Systems Const Reports as per HPI Physical Exam Vital Signs: Last Vital Signs Resp 20 10/26/23 09:47 BP 120/60 10/26/23 09:47 Pulse Ox 98 10/26/23 09:47 Oxygen Delivery Method Room Air 10/26/23 09:47 Const General: cooperative and healthy appearing Resp Effort & Inspection: normal respiratory effort Psych Appearance: grossly normal Mental Status: mental status grossly normal Speech and movement: Normal speech and movement present Affect: normal affect Attitude: cooperative Thought process: Normal thought process present Thought content: Normal thought content present Assessment & Plan Assessment & Plan (1) Alcohol use disorder, mild, abuse: Code(s): F10.10 - Alcohol abuse, uncomplicated Plan: -Rx for vivitrol sent -Call office with concerns or questions -Follow up 1 week Medications: New naltrexone microspheres ER 380 mg IM Q4W 1 ea 5RF Coding Level of Care Code Est Pt Level 3 (29880) Diagnoses Alcohol use disorder, mild, abuse F10.10
[2023-10-26 09:47] VITALS: BP 120/60; RESP 20; O2SAT 98
== END 2023-10-26 10:01 | disposition home or self-care (01) ==
PROVIDERS: PCP Internal Medicine; Visit Provider Nurse Practitioner Family
DX: F10.10 Alcohol abuse, uncomplicated (principal)
CPT/HCPCS: 99213

== ENCOUNTER → 2023-10-26 09:38 | Outpatient (BNVA) | payer MEDICARE, MEDICAID, SELFPAY | PROVIDERS: PCP Internal Medicine; Visit Provider Nurse Practitioner Family | DX: F10.10 Alcohol abuse, uncomplicated (principal); Z79.899 Other long term (current) drug therapy | CPT/HCPCS: 99212 ==

== ENCOUNTER 2023-11-05 13:27 | Emergency (ER) | payer MEDICARE, MEDICAID, SELFPAY ==
--- NOTE | ~2023-11-05 | XR_ITS ---
EXAMINATION: XR HUMERUS, RIGHT. XR FOREARM, RIGHT. XR HAND, RIGHT. CLINICAL INFORMATION: Fall downstairs with arm pain COMPARISON: None. TECHNIQUE: AP and lateral views of the right humerus. AP and lateral views of the right forearm. 3 views of the right hand. FINDINGS: No right humerus fracture or malalignment. No fracture of the right forearm. No radiopaque foreign body. No elbow joint effusion. No fracture or malalignment of the right hand. No significant degenerative findings. No radiopaque foreign body. Remote, healed fracture deformity of the 4th distal phalanx or a subungual exostosis. XR/XR forearm RT 2V IMPRESSION: No acute fracture or malalignment of the right humerus, forearm, or hand.
--- NOTE | ~2023-11-05 | XR_ITS ---
EXAMINATION: XR HUMERUS, RIGHT. XR FOREARM, RIGHT. XR HAND, RIGHT. CLINICAL INFORMATION: Fall downstairs with arm pain COMPARISON: None. TECHNIQUE: AP and lateral views of the right humerus. AP and lateral views of the right forearm. 3 views of the right hand. FINDINGS: No right humerus fracture or malalignment. No fracture of the right forearm. No radiopaque foreign body. No elbow joint effusion. No fracture or malalignment of the right hand. No significant degenerative findings. No radiopaque foreign body. Remote, healed fracture deformity of the 4th distal phalanx or a subungual exostosis. XR/XR hand RT min 3V IMPRESSION: No acute fracture or malalignment of the right humerus, forearm, or hand.
--- NOTE | ~2023-11-05 | CT_ITS ---
EXAMINATION: CT CERVICAL SPINE WITHOUT CONTRAST CLINICAL INFORMATION: Mechanical fall, neck injury and pain COMPARISON: None available. TECHNIQUE: Multiple 3.0 and 0.6 mm axial images were obtained from base of skull to T1 levels without IV contrast enhancement. Sagittal and coronal 2.0 mm bone window images were reconstructed from axial image data. This CT examination was performed using dose optimization techniques as appropriate, variously including the following: *Automated exposure control *Adjustment of mA and/or kV according to patient size (this includes techniques or standardized protocols for targeted exams where dose is matched to indication/reason for exam; i.e. extremities or head) *Use of iterative reconstruction technique DLP: 911.3 mGy-cm FINDINGS: C1/C2: Bony structures are intact with normal alignment. There is no spinal stenosis. C2/C3: Bony structures are intact with normal alignment. There is no spinal stenosis. Bilateral C2/C3 neuroforamina are patent. Bilateral apophyseal joints are intact with normal alignment. C3/C4: Bony structures are intact with normal alignment. There is no spinal stenosis. Bilateral C3/C4 neuroforamina are patent. Bilateral apophyseal joints are intact with normal alignment. C4/C5: Bony structures are intact with normal alignment. There is no spinal stenosis. Bilateral C4/C5 neuroforamina are patent. Bilateral apophyseal joints are intact with normal alignment. C5/C6: Bony structures are intact with normal alignment. There is moderate posterior disc protrusion. There is resulting mild spinal stenosis, with AP diameter of the spinal canal reduced to 10.0 mm. Bilateral C5/C6 neuroforamina are patent. Bilateral apophyseal joints are intact with normal alignment. C6/C7: Bony structures are intact with normal alignment. There is no spinal stenosis. Bilateral C6/C7 neuroforamina are patent. Bilateral apophyseal joints are intact with normal alignment. C7/T1: Bony structures are intact with normal alignment. There is no spinal stenosis. Bilateral C7/T1 neuroforamina are patent. Bilateral apophyseal joints are intact with normal alignment. CT/CT cervical spine wo IV con IMPRESSION: 1. Moderate posterior C5-C6 disc protrusion causing mild spinal stenosis is seen. 2. No cervical fracture or dislocation is seen.
--- NOTE | ~2023-11-05 | XR_ITS ---
Examination: Right clavicle and chest. Clinical indications: Pain. TECHNIQUE: Right clavicle 2 views and chest 2 views. FINDINGS: Right clavicle: There is no visible fracture or bony abnormality. The soft tissues are normal. CHEST: The lungs are well-expanded and clear. Heart size and pulmonary vascularity is normal. Is mild dextro scoliosis dorsal spine. No lytic process. XR/XR clavicle RT IMPRESSION: 1. Unremarkable right clavicle. 2. Unremarkable chest exam. 3. Mild dextro scoliosis dorsal spine.
--- NOTE | ~2023-11-05 | XR_ITS ---
EXAMINATION: XR HUMERUS, RIGHT. XR FOREARM, RIGHT. XR HAND, RIGHT. CLINICAL INFORMATION: Fall downstairs with arm pain COMPARISON: None. TECHNIQUE: AP and lateral views of the right humerus. AP and lateral views of the right forearm. 3 views of the right hand. FINDINGS: No right humerus fracture or malalignment. No fracture of the right forearm. No radiopaque foreign body. No elbow joint effusion. No fracture or malalignment of the right hand. No significant degenerative findings. No radiopaque foreign body. Remote, healed fracture deformity of the 4th distal phalanx or a subungual exostosis. XR/XR humerus RT IMPRESSION: No acute fracture or malalignment of the right humerus, forearm, or hand.
--- NOTE | ~2023-11-05 | XR_ITS ---
Examination: Right clavicle and chest. Clinical indications: Pain. TECHNIQUE: Right clavicle 2 views and chest 2 views. FINDINGS: Right clavicle: There is no visible fracture or bony abnormality. The soft tissues are normal. CHEST: The lungs are well-expanded and clear. Heart size and pulmonary vascularity is normal. Is mild dextro scoliosis dorsal spine. No lytic process. XR/XR chest 2V IMPRESSION: 1. Unremarkable right clavicle. 2. Unremarkable chest exam. 3. Mild dextro scoliosis dorsal spine.
--- NOTE | ~2023-11-05 | CT_ITS ---
EXAMINATION: CT HEAD WITHOUT CONTRAST CLINICAL INFORMATION: Mechanical fall, Blunt head trauma with loss of consciousness, significant head injury and posttraumatic headache. COMPARISON: CT scan of brain on 05/08/2017, MRI of brain on 07/04/2009 TECHNIQUE: Contiguous axial imaging was performed from the skull base to vertex without intravenous administration of contrast. This CT examination was performed using dose optimization techniques as appropriate, variously including the following: *Automated exposure control *Adjustment of mA and/or kV according to patient size (this includes techniques or standardized protocols for targeted exams where dose is matched to indication/reason for exam; i.e. extremities or head) *Use of iterative reconstruction technique DLP: 911.3 mGy-cm FINDINGS: Ventricles, sulci and cisterns are normal. There is no midline shift, no abnormal intra- or extra- axial fluid accumulation. Rod and white matter differentiation is normal. Bone window images show no evidence of skull fracture. CT/CT head/brain wo IV con IMPRESSION: 1. Unchanged Normal CT scan of the brain. 2. No intracranial hemorrhage or skull fracture is seen. 3. No evidence of space occupying lesion could be found. 4. The current plain CT scan of the brain shows no diagnostic evidence of acute cerebral infarction.
--- NOTE | 2023-11-05 13:36 | ED_ITS ---
HPI - Extremity Injury (Upper) General Chief Complaint: Fall Stated Complaint: fall r arm inj Time Seen by Provider: 11/05/23 14:42 Source: patient and RN notes reviewed Mode of arrival: ambulatory Limitations: no limitations History of Present Illness HPI narrative: This is a 37-year-old female, with a history of alcohol use disorder and MDD, presenting to the emergency department after slip and fall down flight of stairs prior to arrival. Patient states that she just moved into a new apartment with slippery wooden stairs and states that at the top of the steps she slipped, and fell down 12 steps. She believes that she struck her head, unsure about any loss of consciousness. She endorses headache, neck pain, as well as right arm pain. She states some tingling into her fingers. She states that she was able to get herself up and was ambulatory after this fall. Denies any chest pain. Endorses some mild shortness of breath, no abdominal pain, nausea, vomiting or diarrhea. Denies taking any medications prior to her arrival. No other complaints or concerns this time. MD complaint: injury to: right, shoulder, arm, elbow, forearm, wrist and hand Onset (ago): hour(s) Other injuries: head and neck Handedness: right Place: home Severity: moderate Relieving factors: immobilization Exacerbating factors: movement of extremity Context: fall Associated symptoms: numbness and neck pain Related Data Home Medications Medication Instructions Recorded Confirmed olanzapine 5 mg tablet 5 mg PO BID 09/30/23 09/30/23 Previous Rx's Medication Instructions Recorded clonidine HCl 0.1 mg tablet 0.1 mg PO BID #14 tabs 10/07/23 folic acid 1 mg tablet 1 mg PO DAILY #30 tabs 10/07/23 lamotrigine 100 mg tablet 50 mg (1/2 x 100 mg) PO DAILY #14 10/07/23 (Lamictal) tabs naltrexone 50 mg tablet 50 mg PO DAILY 30 days #14 tabs 10/07/23 thiamine HCl (vitamin B1) 100 mg 100 mg PO DAILY #30 tabs 10/07/23 tablet naltrexone microspheres 380 mg 380 mg IM Q4W #1 ea 10/26/23 intramuscular suspension,extended release Allergies Allergy/AdvReac Type Severity Reaction Status Date / Time aspirin [Aspirin] Allergy Unknown STOMACH Verified 10/07/23 13:39 ULCERS pine Allergy Intermediate Difficulty Uncoded 10/07/23 13:39 Breathing Review of Systems Review of Systems: Yes all other systems are reviewed and are negative Constitutional: Constitutional: Reports as per [facility] Past Medical History Attestation statement: The following information was validated with the patient. Medical History Alcohol use disorder, mild, abuse Alcohol use disorder Scoliosis ETOH abuse Social History Social History Household Members: Family Do you presently have visiting nurse or other home services: No Comment: gait steady Patient Tobacco Use Status: Never used Tobacco Substance Use Type: Marijuana Advance Directives: No service: No Sexual orientation: Straight/Heterosexual Physical Exam Vital Signs: Vital Signs: Last Vital Signs Temp 98.2 F 11/05/23 15:49 Pulse 56 11/05/23 15:49 Resp 16 11/05/23 15:49 BP 144/91 H 11/05/23 15:49 Pulse Ox 100 11/05/23 15:49 O2 Del Method Room Air 11/05/23 15:49 BMI result Body Mass Index 24.9 Const: General: cooperative, comfortable and no acute distress Orientation/consciousness: patient oriented x3 Limitations: no limitations HEENT: Head: Yes normal to inspection, Yes normocephalic and Yes atraumatic Ears: hearing grossly normal bilaterally and TM's normal bilaterally (No hemotympanum) General nose exam: Normal external nose present Face and sinus: Yes normal facial exam Mouth: Normal oral and palatal mucosa present, oropharynx normal and moist mucous membranes Throat: Yes posterior oropharynx normal Eyes: General: appearance normal, both eyes and all related structures Eyelids: Yes eyelids normal Conjunctivae: conjunctivae normal Sclerae: sclerae normal Pupils: Equal, round and reactive pupils present EOM: EOMs intact bilaterally Neck: Other: No midline cervical spine tenderness. Full range of motion of the neck without difficulty Neck: Yes normal visual inspection, Yes full ROM and Yes no lymphadenopathy Lymphatic: no lymphadenopathy noted Chest: Chest palpation & inspection: normal inspection of the chest Resp: Effort & Inspection: normal respiratory effort and able to speak in complete sentences Auscultation: clear to auscultation bilaterally, no crackles, no rales, no rhonchi and no wheezes Cardio: Rate: regular rate Rhythm: regular rhythm Heart sounds: S1 normal heart sound present and S2 normal heart sound present GI: Inspection: Yes normal to inspection Skin: General skin exam: no rashes or lesions noted Trauma: no lacerations or abrasions Wounds: no wounds Neuro: General: patient oriented x3 and moves all extremities Cranial nerves: Yes CN's II-XII intact bilaterally and Yes Equal, round and reactive pupils present Cognition (Neuro): normal cognition Gait exam (Neuro): Normal gait present Motor exam (neuro): 5/5 motor strength present throughout and Pronator motor function not present Extrem: Other: Right arm with tenderness palpation along the medial and lateral epicondyle. Limited range of motion secondary to pain. Tenderness palpation along the distal radius and ulna. No snuffbox tenderness. She does have diffuse tenderness throughout the entire arm, no overlying ecchymosis, edema, erythema, or open wounds. Diffuse tenderness throughout the entire right shoulder joint as well as right clavicle. General: Yes normal to inspection Right upper extremity: normal to inspection Left upper extremity: normal to inspection Right lower extremity: normal to inspection Left lower extremity: normal to inspection Course Course Course Narrative: This is a rapid medical exam: Additional HPI, ROS, PE not included below will be deferred to primary provider. Patient is a 37-year-old left hand dominant female presenting to the emergency department with complaint of right arm pain after a fall today. States she just moved into a new apartment and the stairs are slippery. She states that she slid down the stairs on her back but believes she lost consciousness. She is not anticoagulated. Plan: CT head and neck, xrays Reevaluation(s) Reevaluation #1: CT cervical spine revealing moderate posterior C5-C6 disc protrusion causing mild spinal stenosis. I discussed this with my attending physician, Dr. Torres. No immediate intervention warranted. CT head, humerus, hand, chest, forearm, and clavicle revealing no acute abnormalities. I discussed findings with patient, pain has been well-controlled with Toradol and Tylenol. Patient placed in sling, and given neurosurgery follow-up for follow-up in regards to disc protrusion. She was given return precautions. She understands agrees with plan. Patient stable for discharge Time: 17:15 Medications Administered Discontinued Medications Generic Name Dose Route Start Last Admin Trade Name Freq PRN Reason Stop Dose Admin Acetaminophen 975 mg 11/05/23 15:01 11/05/23 15:24 Acetaminophen 325 Mg Tablet PO 11/05/23 15:02 975 mg ONCE ONE Administration Ketorolac Tromethamine 15 mg 11/05/23 16:19 11/05/23 16:35 Ketorolac Tromethamine 15 Mg/Ml Vial IM 11/05/23 16:20 15 mg ONCE ONE Administration Medical Decision Making Medical Decision Making [facility] Narrative: A 7-year-old female, with a history of alcohol use disorder, presenting to the emergency department with complaints of right arm pain neck pain and headache status post mechanical fall which occurred prior to arrival. She endorses head strike with positive LOC. On arrival, patient mildly hypertensive at 157/99. She expresses mild shortness of breath, headache, right arm pain and neck pain. She is neurologically intact. Differential diagnoses include closed head injury, ICH, subdural hematoma, cervical spine fracture, contusion, sprain, right arm fracture, dislocation, clavicular fracture. Plan: CT head, neck, humerus x-ray, hand x-ray, and forearm x-ray, Tylenol 1 g Differential Diagnosis Differential Diagnoses: The differential diagnosis associated with the presentation includes See above Admission/Observation Consideration of admission/observation: Escalation of care including admission/observation considered Patient would have been admitted to the hospital had her work up had any findings where hospital admission was appropriate and her clinical presentation warranted hospital admission. Lab Data [facility] Lab Attestation statement: I reviewed the patient's lab results. Labs: Lab Results 11/05/23 Range/Units 15:39 Urine Test NEGATIVE (NEGATIVE) Radiology Impression Discussion of test interpretation with radiology: I have reviewed the radiologist's reading. Radiologist Impression: Clinical indications: Pain. TECHNIQUE: Right clavicle 2 views and chest 2 views. FINDINGS: Right clavicle: There is no visible fracture or bony abnormality. The soft tissues are normal. CHEST: The lungs are well-expanded and clear. Heart size and pulmonary vascularity is normal. Is mild dextro scoliosis dorsal spine. No lytic process. XR/XR clavicle RT IMPRESSION: 1. Unremarkable right clavicle. 2. Unremarkable chest exam. 3. Mild dextro scoliosis dorsal spine. Dictated By: Luis Niño MD EXAMINATION: XR HUMERUS, RIGHT. XR FOREARM, RIGHT. XR HAND, RIGHT. CLINICAL INFORMATION: Fall downstairs with arm pain COMPARISON: None. TECHNIQUE: AP and lateral views of the right humerus. AP and lateral views of the right forearm. 3 views of the right hand. FINDINGS: No right humerus fracture or malalignment. No fracture of the right forearm. No radiopaque foreign body. No elbow joint effusion. No fracture or malalignment of the right hand. No significant degenerative findings. No radiopaque foreign body. Remote, healed fracture deformity of the 4th distal phalanx or a subungual exostosis. XR/XR humerus RT IMPRESSION: No acute fracture or malalignment of the right humerus, forearm, or hand. EXAMINATION: CT HEAD WITHOUT CONTRAST CLINICAL INFORMATION: Mechanical fall, Blunt head trauma with loss of consciousness, significant head injury and posttraumatic headache. COMPARISON: CT scan of brain on 05/08/2017, MRI of brain on 07/04/2009 TECHNIQUE: Contiguous axial imaging was performed from the skull base to vertex without intravenous administration of contrast. This CT examination was performed using dose optimization techniques as appropriate, variously including the following: *Automated exposure control *Adjustment of mA and/or kV according to patient size (this includes techniques or standardized protocols for targeted exams where dose is matched to indication/reason for exam; i.e. extremities or head) *Use of iterative reconstruction technique DLP: 911.3 mGy-cm FINDINGS: Ventricles, sulci and cisterns are normal. There is no midline shift, no abnormal intra- or extra- axial fluid accumulation. Rod and white matter differentiation is normal. Bone window images show no evidence of skull fracture. CT/CT head/brain wo IV con IMPRESSION: 1. Unchanged Normal CT scan of the brain. 2. No intracranial hemorrhage or skull fracture is seen. 3. No evidence of space occupying lesion could be found. 4. The current plain CT scan of the brain shows no diagnostic evidence of acute cerebral infarction. Dictated By: Osito Mishra EXAMINATION: CT CERVICAL SPINE WITHOUT CONTRAST CLINICAL INFORMATION: Mechanical fall, neck injury and pain COMPARISON: None available. TECHNIQUE: Multiple 3.0 and 0.6 mm axial images were obtained from base of skull to T1 levels without IV contrast enhancement. Sagittal and coronal 2.0 mm bone window images were reconstructed from axial image data. This CT examination was performed using dose optimization techniques as appropriate, variously including the following: *Automated exposure control *Adjustment of mA and/or kV according to patient size (this includes techniques or standardized protocols for targeted exams where dose is matched to indication/reason for exam; i.e. extremities or head) *Use of iterative reconstruction technique DLP: 911.3 mGy-cm FINDINGS: C1/C2: Bony structures are intact with normal alignment. There is no spinal stenosis. C2/C3: Bony structures are intact with normal alignment. There is no spinal stenosis. Bilateral C2/C3 neuroforamina are patent. Bilateral apophyseal joints are intact with normal alignment. C3/C4: Bony structures are intact with normal alignment. There is no spinal stenosis. Bilateral C3/C4 neuroforamina are patent. Bilateral apophyseal joints are intact with normal alignment. C4/C5: Bony structures are intact with normal alignment. There is no spinal stenosis. Bilateral C4/C5 neuroforamina are patent. Bilateral apophyseal joints are intact with normal alignment. C5/C6: Bony structures are intact with normal alignment. There is moderate posterior disc protrusion. There is resulting mild spinal stenosis, with AP diameter of the spinal canal reduced to 10.0 mm. Bilateral C5/C6 neuroforamina are patent. Bilateral apophyseal joints are intact with normal alignment. C6/C7: Bony structures are intact with normal alignment. There is no spinal stenosis. Bilateral C6/C7 neuroforamina are patent. Bilateral apophyseal joints are intact with normal alignment. C7/T1: Bony structures are intact with normal alignment. There is no spinal stenosis. Bilateral C7/T1 neuroforamina are patent. Bilateral apophyseal joints are intact with normal alignment. CT/CT cervical spine wo IV con IMPRESSION: 1. Moderate posterior C5-C6 disc protrusion causing mild spinal stenosis is seen. 2. No cervical fracture or dislocation is seen. Dictated By: Osito Mishra Signed By: <Electronically signed b Discharge Plan Discharge Clinical Impression: Closed head injury, Contusion of arm, right Patient Disposition: Home, Self-Care Instructions: Head Injury (ED), Contusion in Adults (ED) Additional Instructions: Your seen in the emergency department after a fall. Your CT of your head and neck do not show any new injuries. You do have a disc bulge at C5 and C6 position, this is unlikely due to the fall. How much you to follow-up with Neurosurgery for further evaluation and management. You may take Tylenol as needed for pain. Rest, ice, use sling as directed. Make sure you take your arm out of sling multiple times per day, only use this for comfort. Gentle [id number] massage, ice and heat can also help with pain and symptoms. If any new or worsening symptoms occur including but not limited to worsening headache, dizziness, lightheadedness, chest pain, shortness of breath, please return for re-evaluation. Prescriptions: No Action olanzapine 5 mg tablet 5 mg PO BID naltrexone microspheres 380 mg suspension,extended rel recon 380 mg IM Q4W Qty: 1 5RF lamotrigine [Lamictal] 100 mg tablet 50 mg PO DAILY Qty: 14 0RF naltrexone 50 mg tablet 50 mg PO DAILY 30 Days Qty: 14 0RF Rx Instructions: 1/2 tab x 3 days, progress to full tab clonidine HCl 0.1 mg tablet 0.1 mg PO BID Qty: 14 0RF folic acid 1 mg tablet 1 mg PO DAILY Qty: 30 2RF thiamine HCl (vitamin B1) 100 mg tablet 100 mg PO DAILY Qty: 30 0RF Referrals: Natan England MD, PhD [Physician] - Interventions: ED Discharge Assessment Last Done: 11/05/23 17:17
[2023-11-05 13:37] VITALS: BP 157/99; PULSE 65; RESP 18; TEMP 36.5; O2SAT 99; BMI 24.9
[2023-11-05] MEDS: Acetaminophen 325 MG TABLET 975 MG PO (15:24)
[2023-11-05 15:49] VITALS: BP 144/91; PULSE 56; RESP 16; TEMP 36.8; O2SAT 100
[2023-11-05 15:52] LABS: UPreg QC Valid YES; Urine Pregnancy NEGATIVE (NEGATIVE)
[2023-11-05] MEDS: Ketorolac Tromethamine 15 MG/ML VIAL IM (16:35)
== END 2023-11-05 17:20 | disposition home or self-care (01) ==
PROVIDERS: Registered Nurse Emergency; Emergency Provider Emergency Medicine; PCP Internal Medicine
DX: S09.90XA Unspecified injury of head, initial encounter (principal); S40.021A Contusion of right upper arm, initial encounter; R51.9 Headache, unspecified; M54.2 Cervicalgia; M79.601 Pain in right arm; R07.89 Other chest pain; W10.9XXA Fall (on) (from) unspecified stairs and steps, initial encounter; Y93.9 Activity, unspecified; Y92.009 Unspecified place in unspecified non-institutional (private) residence as the place of occurrence of the external cause; Y99.8 Other external cause status
CPT/HCPCS: 70450; 71046; 72125; 73000; 73060; 73090; 73130; 81025; 96372; 99283; 99284; J1885

== ENCOUNTER 2023-12-04 13:02 | Outpatient (AMB) | payer MEDICARE, MEDICAID, SELFPAY ==
--- NOTE | 2023-12-04 13:05 | A.OFFVISCC_ITS ---
Intake Vital Signs 12/04/23 13:09 BP 130/70 Blood Pressure Location Lt radial Position Sitting Pulse 88 Pulse Oximetry (%) 98 Intake Visit Reasons: MAT Allergies aspirin [Aspirin] Allergy (Unknown, Verified 10/07/23 13:39) STOMACH ULCERS pine Allergy (Intermediate, Uncoded 10/07/23 13:39) Difficulty Breathing HPI MAT HPI Details Patient presents for MAT visit Requesting for refills on her meds (clonidine, naltrexone, zyprexa) before she goes on vacation, reports she is leaving in a week to go on a cruise T/w informed her a refill was already sent to pharmacy for the naltrexone and clonidine She does not have a psych prescriber at this time Reports intermittent anxiety she associated with perimenopausal symptoms Has no concerns for recovery today, says she has alcohol very sparingly and goes days without drinking SHe reports when she does drink it is only usually a beer or two, feels the naltrexone has been helpful to keep alcohol use to a minimum HPI Comments History of Present Illness Details Patient presents for MAT visit [facility] Medical History Alcohol use disorder, mild, abuse Alcohol use disorder Scoliosis ETOH abuse Social History Household Members: Family Do you presently have visiting nurse or other home services: No Comment: gait steady Patient Tobacco Use Status: Never used Tobacco Substance Use Type: Marijuana service: No Sexual orientation: Straight/Heterosexual Review of Systems Const Reports as per HPI Physical Exam Vital Signs: Last Vital Signs Pulse 88 12/04/23 13:09 BP 130/70 12/04/23 13:09 Pulse Ox 98 12/04/23 13:09 Const General: cooperative and no acute distress Resp Effort & Inspection: normal respiratory effort and able to speak in complete sentences Psych Appearance: grossly normal Mental Status: mental status grossly normal Speech and movement: Normal speech and movement present Affect: normal affect Attitude: cooperative Thought process: Normal thought process present Assessment & Plan Assessment & Plan (1) Alcohol use disorder, mild, abuse: Code(s): F10.10 - Alcohol abuse, uncomplicated Plan: -Patient planning on receiving vivitrol when she returns from vacation -Harm reduction discussed -Refill sent for zyprexa, discussed need to get on waitlist for psych prescriber, provided her with some numbers to call -Follow up 3 weeks Medications: New olanzapine 5 mg PO BID 60 tabs 0RF Coding Level of Care Code Est Pt Level 3 (05691) Diagnoses Alcohol use disorder, mild, abuse F10.10
[2023-12-04 13:09] VITALS: BP 130/70; PULSE 88; O2SAT 98
== END 2023-12-04 13:27 | disposition home or self-care (01) ==
PROVIDERS: PCP Internal Medicine; Visit Provider Nurse Practitioner Family
DX: F10.10 Alcohol abuse, uncomplicated (principal)
CPT/HCPCS: 99213

== ENCOUNTER → 2023-12-04 13:02 | Outpatient (BNVA) | payer MEDICARE, MEDICAID, SELFPAY | PROVIDERS: PCP Internal Medicine; Visit Provider Nurse Practitioner Family | DX: F10.10 Alcohol abuse, uncomplicated (principal) | CPT/HCPCS: 99212 ==

== ENCOUNTER 2023-12-23 09:31 | Outpatient (AMB) | payer MEDICARE, MEDICAID, SELFPAY ==
--- NOTE | 2023-12-23 09:32 | MHC.AM.SUB ---
Vital Signs 12/23/23 09:35 BP 130/82 Blood Pressure Location Lt brachial Position Sitting Pulse 94 Pulse Source Pulse Oximeter Pulse Oximetry (%) 97 Oxygen Delivery Method Room Air Intake Visit Reasons: MAT Allergies aspirin [Aspirin] Allergy (Unknown, Verified 12/23/23 09:35) STOMACH ULCERS pine Allergy (Intermediate, Uncoded 12/23/23 09:35) Difficulty Breathing HPI HPI MAT: Details: Patient presents for MAT visit Reports she had a good vacation (very recently went on a cruise) States she forgot to take her meds on nalini with her, but felt she did well overall with her alcohol consumption The most she consumed in one day was 3 drinks She is desiring the vivitrol injection Still has no psych prescriber HPI Comments Details: Patient presents for MAT visit [facility] Medical History Alcohol use disorder, mild, abuse Alcohol use disorder Scoliosis ETOH abuse Social History Household Members: Family Do you presently have visiting nurse or other home services: No Comment: gait steady Patient Tobacco Use Status: Never used Tobacco Substance Use Type: Marijuana service: No Sexual orientation: Straight/Heterosexual Review of Systems Const Reports as per HPI Physical Exam Vital Signs: Last Vital Signs Pulse 94 12/23/23 09:35 BP 130/82 12/23/23 09:35 Pulse Ox 97 12/23/23 09:35 Oxygen Delivery Method Room Air 12/23/23 09:35 Const General: cooperative and no acute distress Resp Effort & Inspection: normal respiratory effort and able to speak in complete sentences Psych Appearance: grossly normal Mental Status: mental status grossly normal Speech and movement: Normal speech and movement present Affect: normal affect Attitude: cooperative Thought process: Normal thought process present Office Meds Vivitrol 380 mg intramuscular suspension,extended release Performing Provider: Makeda Yarbrough NP Performing Location: [facility] Administered by: Katheryn Olson RN on 12/23/23 09:54 Dose Route Admin Location Dispensed Lot Number Expiration Date [facility] [employer] 380 mg IM 380 mg [id number] 01/28/26 [id number] [employer] Comments: Patient educated on injection, she verbally agrees to understanding. Tolerated with no stated or noted side effects, agrees to call [facility] for any questions or concerns. Assessment & Plan Assessment & Plan (1) Alcohol use disorder: Category: Medical Plan: -Tolerated injection well -She is to make some phone calls to get on a waiting list for s psych prescriber- after which t/w will send a referral to [facility] -Follow up 4 weeks Orders: Orders AMB Naltrexone Injection Patient Supplied (NC) Today F10.20 - Alcohol dependence, uncomplicated
[2023-12-23 09:35] VITALS: BP 130/82; PULSE 94; O2SAT 97
== END 2023-12-23 10:26 | disposition home or self-care (01) ==
PROVIDERS: PCP Internal Medicine; Visit Provider Nurse Practitioner Family
DX: F10.20 Alcohol dependence, uncomplicated (principal); F10.90 Alcohol use, unspecified, uncomplicated
CPT/HCPCS: 99213

== ENCOUNTER → 2023-12-23 09:31 | Outpatient (BNVA) | payer MEDICARE, MEDICAID, SELFPAY | PROVIDERS: PCP Internal Medicine; Visit Provider Nurse Practitioner Family | DX: F10.20 Alcohol dependence, uncomplicated (principal); Z79.899 Other long term (current) drug therapy | CPT/HCPCS: 96372; 99212; J2315 ==

== ENCOUNTER 2024-01-21 09:29 | Outpatient (AMB) | payer MEDICARE, MEDICAID, SELFPAY ==
[2024-01-21 09:36] VITALS: BP 122/80; PULSE 93; O2SAT 98
--- NOTE | 2024-01-21 09:36 | AM.OFFVISNUR ---
Intake Vital Signs 01/21/24 09:36 BP 122/80 Blood Pressure Location Lt brachial Position Sitting Pulse 93 Pulse Source Pulse Oximeter Pulse Oximetry (%) 98 Oxygen Delivery Method Room Air Intake Visit Reasons: Reyna Inj Allergies aspirin [Aspirin] Allergy (Unknown, Verified 12/23/23 09:35) STOMACH ULCERS pine Allergy (Intermediate, Uncoded 12/23/23 09:35) Difficulty Breathing Office Meds Vivitrol 380 mg intramuscular suspension,extended release Performing Provider: Makeda Yarbrough NP Performing Location: [facility] Administered by: Katheryn Olson RN on 01/21/24 11:29 Dose Route Admin Location Dispensed Lot Number Expiration Date [facility] [employer] 380 mg IM RG 380 mg [id number] 01/28/26 [id number] [employer] Results AMB Test Urine AMB Test Urine Negative Last Edit by Ceci Goode CMA on 01/21/24 09:37 Coding Assessment & Plan Assessment & Plan Orders: Orders AMB HCG Urine Test Today Z32.02 - Encounter for test, result negative AMB Naltrexone Injection Patient Supplied (NC) Today F10.20 - Alcohol dependence, uncomplicated
== END 2024-01-21 09:57 | disposition home or self-care (01) ==
PROVIDERS: PCP Internal Medicine
DX: F10.20 Alcohol dependence, uncomplicated (principal); Z32.02 Encounter for pregnancy test, result negative

== ENCOUNTER → 2024-01-21 09:29 | Outpatient (BNVA) | payer MEDICARE, MEDICAID, SELFPAY | PROVIDERS: PCP Internal Medicine | DX: F10.20 Alcohol dependence, uncomplicated (principal); Z32.02 Encounter for pregnancy test, result negative | CPT/HCPCS: 81025; 96372; J2315 ==

== ENCOUNTER 2024-07-15 13:21 | Emergency (ER) | payer MEDICARE, MEDICAID, SELFPAY ==
[2024-07-15 14:42] VITALS: BP 139/100; PULSE 88; RESP 16; TEMP 36.8; O2SAT 98; BMI 25.7
--- NOTE | 2024-07-15 14:43 | ED.ABDPAIN ---
HPI - Abdominal Pain General Chief Complaint: Back Pain/Injury Stated Complaint: kidney stone History of Present Illness HPI narrative: LWCT Related Data Previous Rx's ?Medication ?Instructions ?Recorded folic acid 1 mg tablet 1 mg PO DAILY #30 tabs 10/07/23 lamotrigine 100 mg tablet 50 mg (1/2 x 100 mg) PO DAILY #14 10/07/23 (Lamictal) tabs naltrexone microspheres 380 mg 380 mg IM Q4W #1 ea 10/26/23 intramuscular suspension,extended release clonidine HCl 0.1 mg tablet 0.1 mg PO BID #180 tabs 11/12/23 naltrexone 50 mg tablet 50 mg PO DAILY 30 days #30 tabs 11/12/23 thiamine HCl (vitamin B1) 100 mg 100 mg PO DAILY #30 tabs 11/12/23 tablet olanzapine 5 mg tablet 5 mg PO BID #60 tabs 03/18/24 Allergies Allergy/AdvReac Type Severity Reaction Status Date / Time aspirin [Aspirin] Allergy Unknown STOMACH Verified 07/15/24 14:45 ULCERS pine Allergy Intermediate Difficulty Uncoded 07/15/24 14:45 Breathing PMFSH Past Medical History Medical History Alcohol use disorder, mild, abuse Alcohol use disorder Scoliosis ETOH abuse Social History Social History Household Members: Family Do you presently have visiting nurse or other home services: No Comment: gait steady Patient Tobacco Use Status: Never used Tobacco Substance Use Type: Marijuana Advance Directives: No Advance Directives Information Provided: No service: No Sexual orientation: Straight/Heterosexual Physical Exam ED Vital Signs: Vital Signs - 24 hr 07/15/24 14:42 Temperature 98.2 F Pulse Rate 88 Respiratory Rate 16 Blood Pressure 139/100 H Pulse Oximetry 98 Oxygen Delivery Method Room Air BMI result Body Mass Index 25.7 Course Course Course Narrative: This is an RME performed by Catarino Kenny CNP: Additional HPI, ROS, PE not included below will be deferred to primary provider. Patient is a 38-year-old female who presents emergency department for evaluation, Reports last night with onset of pain to the left back/flank that is radiating across to the abdomen the left upper quadrant down to the left lower quadrant. Reports pain has been intermittently, occurring with intense severity for about 30 minutes gets very sweaty and feels nauseous and then the pain lets up. Denies dysuria, hematuria, urinary frequency/urgency/hesitancy but does feel as though her urine is darker than typical. Denies any history of kidney stones. Plan: Serum labs, urinalysis, hCG Discharge Plan Discharge Clinical Impression: Flank pain Patient Disposition: Left W/O Completing Treatment Prescriptions: No Action naltrexone 50 mg tablet 50 mg PO DAILY 30 Days Qty: 30 0RF thiamine HCl (vitamin B1) 100 mg tablet 100 mg PO DAILY Qty: 30 0RF clonidine HCl 0.1 mg tablet 0.1 mg PO BID Qty: 180 0RF olanzapine 5 mg tablet 5 mg PO BID Qty: 60 0RF naltrexone microspheres 380 mg suspension,extended rel recon 380 mg IM Q4W Qty: 1 5RF lamotrigine [Lamictal] 100 mg tablet 50 mg PO DAILY Qty: 14 0RF folic acid 1 mg tablet 1 mg PO DAILY Qty: 30 2RF Discharge Date/Time: 07/15/24 18:05
== END 2024-07-15 18:05 | disposition left against medical advice (07) ==
PROVIDERS: Emergency Provider Student in an Organized Health Care Education/Training Program; PCP Internal Medicine
DX: R10.9 Unspecified abdominal pain (principal); Z53.21 Procedure and treatment not carried out due to patient leaving prior to being seen by health care provider
CPT/HCPCS: 99281

== ENCOUNTER 2024-08-03 14:07 | Outpatient (AMB) | payer MEDICARE, MEDICAID, SELFPAY ==
--- NOTE | 2024-08-03 14:35 | A.OFFVISCC_ITS ---
Intake Visit Reasons: MAT office Allergies aspirin [Aspirin] Allergy (Unknown, Verified 07/15/24 14:45) STOMACH ULCERS pine Allergy (Intermediate, Uncoded 07/15/24 14:45) Difficulty Breathing HPI HPI MAT office: Details: Patient presents as a walk in requesting a refill on psychiatric medications She was last seen in this office in December 2023. Chart reviewed as this patient has never been seen by this typewriter aligner Documentation shows that at first appt in October patient requested refill on Lamictal and Zyprexa stating she would be seeing her provider soon Unclear what occurred, but she was never seen by a provider. She was advised during visits that she would need to establish care with providers as this was not something that could be continued here. Patient was also referred to providers Today she states she has been unable to connect with an ongoing provider. She reported that she has been unmedicated for months , then shared that she still has olanzipine. Affect was sad, but calm. Though process linear. Denies any thoughts of self harm. Denies any alcohol use for months . t/w advised patient that refills would not be provided and provided information for [facility] evaluation as well as crisis evaluation patient agreeable. tearful, but understanding t/w gently reinforced importance of establishing care with providers and benefits to doing so. Encouraged patient to present to ED for evaluation if sx continue or worsen also encouraged patient to reach out to primary care to determine if they would be willing to provide bridge care Review of Systems Const Reports as per HPI Physical Exam Const General: cooperative and well groomed Nutritional Appearance: average body habitus Orientation/consciousness: patient oriented x3 Limitations: no limitations Neuro General: patient oriented x3 Psych Appearance: well kempt Speech and movement: Clear speech present Affect: Sad affect present Attitude: cooperative Thought process: Normal thought process present Thought content: Normal thought content present Insight: Fair insight present (Psych) Judgement: Fair judgement present (Psych) Assessment & Plan Assessment & Plan (1) MDD (major depressive disorder), recurrent episode, moderate: Code(s): F33.1 - Major depressive disorder, recurrent, moderate Category: Medical Plan: * crisis and [facility] information provided * encouraged to present to the ED if needed for sx management * no follow up indicated at this time [facility] Medical History Alcohol use disorder, mild, abuse Alcohol use disorder Scoliosis ETOH abuse Social History Household Members: Family Do you presently have visiting nurse or other home services: No Comment: gait steady Patient Tobacco Use Status: Never used Tobacco Substance Use Type: Marijuana service: No Sexual orientation: Straight/Heterosexual Social History: lives with mother. She has two children ages 12 and 2. Substance History: Alcohol: daily since age 21, 4-5 nip of vodka, 4-5 beers. Cocaine: since age 21, weekly denies opiates use.
== END 2024-08-03 14:59 | disposition home or self-care (01) ==
PROVIDERS: PCP Internal Medicine; Visit Provider Nurse Practitioner Psychiatric/Mental Health
DX: F10.90 Alcohol use, unspecified, uncomplicated (principal); F14.90 Cocaine use, unspecified, uncomplicated; F33.1 Major depressive disorder, recurrent, moderate
CPT/HCPCS: 99212

== ENCOUNTER → 2024-08-03 14:07 | Outpatient (BNVA) | payer MEDICARE, MEDICAID, SELFPAY | PROVIDERS: PCP Internal Medicine; Visit Provider Nurse Practitioner Psychiatric/Mental Health | DX: F33.1 Major depressive disorder, recurrent, moderate (principal) | CPT/HCPCS: 99212 ==